=== PATIENT | female | born 1970 | race Caucasian/White ===

== ENCOUNTER 2018-12-19 00:33 | Outpatient (CLI) | payer BC, SELFPAY ==
--- NOTE | 2018-12-19 07:50 | DI.MAMMO_ITS ---
SYMPTOM/DIAGNOSIS: SCREENING Z12.31 [facility] Z00.00 BILATERAL SCREENING MAMMOGRAM: Mammograms were interpreted according to the usual protocol including computer analysis with CAD system, tomosynthesis and C view imaging. Comparison is made with exams from 2009 through 2016. The breasts are composed of heterogeneously dense fibroglandular tissue, breast density category C. No suspicious masses or suspicious microcalcifications are seen. There has been no significant change. IMPRESSION: Category 1, negative mammogram. Yearly screening mammography is recommended. Breast density Category C. SA ASSESSMENT OF FINDINGS: Negative. Category 1. Patient will receive a letter notifying them of these results. Bi-RADS category C. The breasts are heterogeneously dense, which may obscure small masses.
[2018-12-19 08:55] LABS: Hemoglobin A1C 5.8 % (4.5-6.2)
[2018-12-19 09:20] LABS: Anion Gap 9.2 mmol/L (3-11); BUN 13 mg/dL (7-18); CO2 25.8 mmol/L (21.0-32.0); CREATININE 0.74 mg/dL (0.55-1.02); Calculated LDL 158 mg/dL; Chloride 106 mmol/L (98-107); Cholesterol 236 mg/dL (50-200); Glucose 110 mg/dL (70-100); HDL Cholesterol 51 mg/dL (40-60); Potassium 4.1 mmol/L (3.5-5.1); Sodium 141 mmol/L (136-145); TSH (W/Ref FT4) 1.42 uIU/mL (0.36-3.74); Triglyceride 139 mg/dL (30-150)
== END 2018-12-19 00:53 ==
PROVIDERS: PCP Family Medicine; Visit Provider Family Medicine
DX: R73.03 Prediabetes (principal); E78.5 Hyperlipidemia, unspecified; E66.9 Obesity, unspecified; Z00.00 Encounter for general adult medical examination without abnormal findings; Z12.31 Encounter for screening mammogram for malignant neoplasm of breast
CPT/HCPCS: 36415; 77063; 77067; 80048; 80061; 83036; 84443

== ENCOUNTER 2019-12-28 16:40 | Outpatient (REF) | payer BC, SELFPAY ==
[2019-12-28 20:46] LABS: ALT 33 U/L (14-59); AST 16 U/L (15-37); Albumin 3.8 g/dL (3.4-5.0); Alkaline Phosphatase 102 U/L (46-116); Bilirubin, Total 0.4 mg/dL (0.2-1.0); Total Protein 6.8 g/dL (6.4-8.2)
[2019-12-28 20:53] LABS: Hemoglobin A1C 5.7 % (<5.7)
== END 2019-12-28 17:00 ==
LOC: NCHCN 16:40
PROVIDERS: PCP Family Medicine; Visit Provider Family Medicine
DX: R10.11 Right upper quadrant pain (principal); R73.03 Prediabetes
CPT/HCPCS: 80076; 83036

== ENCOUNTER 2020-01-01 00:41 | Outpatient (CLI) | payer BC, SELFPAY ==
--- NOTE | 2020-01-01 | DI.US_ITS ---
EXAM: US ABDOMEN INDICATION: RUQ PAIN,S/P GALLBLADDER REMOVAL,R10.11 COMPARISON: US PELVIS TRANSVAG from 07/07/2015 TECHNIQUE: Ultrasound abdomen performed using standard protocol FINDINGS: Abdominal ultrasound was performed according to the usual protocol. The liver is normal in size and shape. No focal hepatic lesion seen. There is been a prior cholecystectomy. No biliary dilatation seen. Pancreas appears intact as visualized. Spleen is unremarkable in appearance with no focal lesion. Kidneys are normal in size and shape. No renal mass, hydronephrosis, or nephrolithiasis. Abdominal aorta and IVC are of normal diameter. IMPRESSION: Negative abdominal ultrasound post cholecystectomy.
== END 2020-01-01 01:01 ==
PROVIDERS: PCP Family Medicine; Visit Provider Family Medicine
DX: R10.11 Right upper quadrant pain (principal)
CPT/HCPCS: 76700

== ENCOUNTER 2020-02-04 01:17 | Outpatient (CLI) | payer BC, SELFPAY ==
--- NOTE | 2020-02-04 | DI.MAMMO_ITS ---
EXAM: MAMMO SCREENING CLINICAL HISTORY: SCREENING, [facility], [facility],Z00.00 TECHNIQUE: Mammograms were interpreted according to the usual protocol including computer analysis w ESTmob CAD system, tomosynthesis and C-view imaging. COMPARISON: 2015 and 2018 FINDINGS: The breasts are composed of scattered fibroglandular densities, Breast Density category B. No suspicious masses or suspicious microcalcifications are seen. No skin thickening or abnormal axillary lymph nodes are seen. There has been no significant change from prior exams. IMPRESSION: BI-RADS Category 1, Negative mammogram Yearly screening mammography is recommended. Breast Density - Category B, scattered fibroglandular densities. A negative radiographic report should not delay biopsy if a dominant or clinically suspicious mass is present. Up to ten percent of cancers are not identified on mammography. A negative report may reinforce clinical impression. Adenosis and dense breasts may obscure an underlying neoplasm. False positive reports average 6 to 10%. Patient will receive a letter notifying them of these results.
== END 2020-02-04 01:37 ==
PROVIDERS: PCP Family Medicine; Visit Provider Family Medicine
DX: Z12.31 Encounter for screening mammogram for malignant neoplasm of breast (principal)
CPT/HCPCS: 77063; 77067

== ENCOUNTER 2021-05-08 21:46 | Outpatient (REF) | payer BC, SELFPAY ==
[2021-05-11 11:05] LABS: HSV 1 DNA Result Negative (Negative); HSV 2 DNA Result Negative (Negative); Varicella Zoster DNA Result Negative (Negative)
== END 2021-05-08 21:47 | disposition home or self-care (01) ==
LOC: LBN 21:46
PROVIDERS: PCP Family Medicine; Visit Provider Family Medicine
DX: R21 Rash and other nonspecific skin eruption (principal)
CPT/HCPCS: 87529; 87798

== ENCOUNTER 2021-09-18 17:04 | Outpatient (REF) | payer BC, SELFPAY ==
--- NOTE | 2021-09-18 13:30 | PAPFT_PTH ---
PATIENT: Ruby Delcid LOC: [facility]#:[id number] AGE/SX: 51/F ROOM: RE09/18/[address]: Razia Bernard : 1970 BED: DIS: 09/18/2021 SPEC #: [id number] RECD: 09/18/21 18:17 STATUS: CHRISTAL REQ #: [id number] ANGELO: 09/18/21 13:[address]: Razia Bernard DEPT: [facility] Cytology RECD BY: Elizabeth Lundy Tissues: 1 - CX/ENDOCX FOR PAP SMEARS Procedures: PAP THIN PREP/UVM Screening HPV DNA PROBE Comments: [id number]
== END 2021-09-18 17:05 | disposition home or self-care (01) ==
LOC: NCHCN 17:04
PROVIDERS: PCP Family Medicine; Visit Provider Family Medicine
DX: Z12.4 Encounter for screening for malignant neoplasm of cervix (principal); Z11.51 Encounter for screening for human papillomavirus (HPV); Z01.419 Encounter for gynecological examination (general) (routine) without abnormal findings
CPT/HCPCS: 88142; 87624

== ENCOUNTER 2021-09-29 02:42 | Outpatient (CLI) | payer BC, SELFPAY ==
--- NOTE | 2021-12-11 08:54 | CER_ITS ---
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 Recording was from September 29 through October 13, 2021 Predominant rhythm was sinus with an average heart rate of 89. Minimum was 67, maximum 152 There were very rare atrial and ventricular ectopic beats There was one 8 beat run of nonsustained ventricular tachycardia There was 1 self-limited atrial runs, 8 beats in duration Patient symptoms were reported. These generally corresponded to sinus tachycardia. The episode of nonsustained ventricular tachycardia may have been associated with symptoms
== END 2021-09-29 02:43 | disposition home or self-care (01) ==
LOC: RT 02:42
PROVIDERS: PCP Family Medicine; Visit Provider Family Medicine
DX: R00.2 Palpitations (principal)
CPT/HCPCS: 93246

== ENCOUNTER → 2021-11-13 00:07 | Outpatient (CLI) | payer BC, SELFPAY ==
--- NOTE | 2021-11-13 | DI.DEXA_ITS ---
Exam(s) XR DEXA BONE DENSITY W/WO LINCOLN EXAM: XR DEXA BONE DENSITY W/WO LINCOLN CLINICAL HISTORY: RT FOOT FX [id number] TECHNIQUE: COMPARISON: No exams were available for comparison FINDINGS: Lateral Spine Image: Unremarkable. No compression deformities identified. Left hip: Total T-Score: 0.2 Total Z-Score: 0.7 T- and Z-scores: Within normal limits. Lumbar Spine: Total T-Score: -1.4 Total Z-Score: -0.5 T- and Z-scores: Findings are consistent with osteopenia. IMPRESSION: No evidence of osteoporosis.
--- OUTSIDE RECORDS SUMMARY | 2021-11-13 00:11 | XMS_ITS | Encounter Summary ---
:1970 Author Organization [facility] Address [address] [place] [address] Care Team Providers Name Role Phone Razia Bernard MD Primary Care Provider Encounter Details Date Type Department Care Team Description 09/21/2021 Lab Requisition [facility] Razia Bernard MD Encounter for Pathology & [address] gynecological Laboratory [address] examination (general) - [place], [place] (routine) without [address] [facility] [id number] abnormal findings [place], [place] [id number] Social History Tobacco Use Types Packs/Day Years Used Date Former Smoker Quit: 05/28/19 17 Smokeless Tobacco: Never Used Sex Assigned at Date Recorded Not on file documented as of this encounter Plan of Treatment Not on filedocumented as of this encounter Procedures Procedure Name Priority Date/Time Associated Diagnosis Comme nts PAP TEST Today 09/18/2021 1:30 Encounter for Results for this EDT gynecological procedure are in examination (general) the re sults (routine) without section. abnormal findings HUMAN PAPILLOMAVIRUS Today 09/18/2021 1:30 Encounter for Res ults for this (HPV) DETECTION-HIGH EDT gynecological proced ure are in RISK TYPES examination (general) the re sults (routine) without section. abnormal findings documented in this encounter Results HUMAN PAPILLOMAVIRUS (HPV) DETECTION-HIGH RISK TYPES (09/18/2021 1:30 EDT) Human Papillomavirus NegativeComment: No Negative [facility] (HPV) Detection-High E6 or E7 mRNA is CENTER LABORATOR Y Types detected from HPV SERVICES types 16,18,31,33,35,39,45 ,51,52,56,58,59,66, and 68 by dump truck driver mediated amplification. Specimen Pap Test - Cervix and/or Endocervix Performing Organization Address City/[facility]/ZIP Code Phon e Number [facility] [address] [place] [address] SERVICES PAP TEST (09/18/2021 1:30 EDT) Specimens A. Cervix and/or [facility] Endocervix , ThinPrep CENTER Imaging System with LABORATORY Manual Evaluation SERVICES Specimen Adequacy Satisfactory for [facility] Evaluation - CENTER transformation zone LABORATORY component present SERVICES General Negative for [facility] intraepithelial [place] lesion or malignancy LABORATORY SERVICES Attestation . [facility] C[facility] signed by Brad benedict, LABORATORY MARLEY Serna( CP) SERVICES on 09/30/2021 at 1456 Clinical History SEE BELOW [facility] SERVICES HPV The result for the Human Pap illomavirus (HPV) Detection-High Risk Types is Negative. No E6 or E7 mRNA is detected from HPV types 16,18,31,33,35,39,45,51,52,56,58,59,66, and 68 by dump truck driver mediated [facility] amplification.Testing was pe rformed on specimen [id number] and was resulted on 09/30/2021 1431 EDT by PADMA, LAB INSTRUMENT RESULTS IN [facility] SERVICES Performing Lab [facility] SERVICES Scanned Images [facility] SERVICES Specimen Pap Test - Cervix and/or Endocervix Performing Organization Address City/State/ZIP Code Phon e Number [facility] [address] [place] [address] SERVICES documented in this encounter Visit Diagnoses Diagnosis Encounter for gynecological examination (general) (routine) without abnormal findings documented in this encounter Care Teams 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
--- OUTSIDE RECORDS SUMMARY | 2021-11-13 00:11 | XMS_ITS | Encounter Summary ---
:1970 Author Organization [facility] Address [address] [place] [address] Care Team Providers Name Role Phone Unavailable Primary Care Provider Unavailable Encounter Details Date Type Department Care Team Description 10/14/2005 Before [facility] - [place] rAreola Jr., Converted Visit Jacqueline branham MD (Maple) [address] [facility] [address] [place] [address] [address] [phone] [place] [address] (Wo rk) Social History Tobacco Use Types Packs/Day Years Used Date Never Assessed Sex Assigned at Date Recorded Not on file documented as of this encounter Progress Notes Cortez Arreola MD - 03/29/2009 1904 EST DIVISION OF PLASTIC RECONSTRUCTIVE SURGERY PROGRESS/FOLLOWUP NOTE - 10/14/2005 Ruby returns in follow up from a breast reduction surgery on September 03. She is doing well. examination her breasts are symmetric. The incisions are healing well. Her nipple areolar complexes are perfused. The right is normally sensate. The left has some altered sensation but the patient relates is improving with time. Impression: Doing well status-post bilateral breast reduction surgery. Photographs were taken. She will follow up on an as needed basis. Signed by Cortez Arreola MD 10/25/2005 16:52 Lucie Arreola, Joe Arreola MD Cortez Arreola MD - Cortez Arreola MD P - chr Job ID: [id number] Document ID: [id number] cc: documented in this encounter Plan of Treatment Not on filedocumented as of this encounter Visit Diagnoses Not on filedocumented in this encounter
--- OUTSIDE RECORDS SUMMARY | 2021-11-13 00:11 | XMS_ITS | Encounter Summary ---
:1970 Author Organization [facility] Address [address] [place] [address] Care Team Providers Name Role Phone Razia Bernard MD Primary Care Provider Reason for Visit Reason Comments New Patient Visit Skin lesions spots of concer n on upper right back, right cheek Encounter Details Date Type Department Care Team Description 05/28/2019 Office Visit [facility] Darwin Raza Seborrhei c keratoses (Primary Dx); Dermatology - [facility] MD Ilya Inflamed seborrheic keratosis of right c heek; [address] Melanocytic nevus of trunk; [address] [place] [address] Neoplasm of uncertain behavior of skin [place], [place] [id number] [place] [address] [address], [address] [place] [phone] (Wo rk) Social History Tobacco Use Types Packs/Day Years Used Date Former Smoker Quit: 05/28/19 17 Smokeless Tobacco: Never Used Sex Assigned at Date Recorded Not on file documented as of this encounter Patient Instructions Patient InstructionsPiDarwin saleem MD - 05/28/2019 15:20 EST WOUND CARE INSTRUCTIONS FOR SKIN BIOPSY The DRESSING/BANDAID should remain in place for 24 hours. You may shower or bathe after 24 hours; remove the bandage and replace it after the shower. DISCOMFORT: Acetaminophen or Ibuprofen (or similar NSAIDs), taken as directed by the tube operator oryour physician, usually relieves any pain you may have. BLEEDING: You may notice some blood on the edges of the dressing the first day and this is NORMAL. If the bleeding soaks through the dressing, remove the dressing, and apply firm, steady pressure with a moist clean wash cloth for 15 minutes (no peeking!). If the bleeding stops, redress the wound. If not, please call our office at . ACTIVITY: You may resume normal activity in 1 day unless instructed otherwise. WOUND CARE: ?? Wash hands with soap and water before changing the dressing. ?? Change the dressing daily and when it becomes wet. Gently clean the wound daily with mild soap and water. You may gently loosen any crusts with a cotton swab. The wound may be slightly tender and may bleed a small amount. A small amount of discharge isnormal. Apply a thin layer of sterile petroleum jelly (Vaseline) over the wound followed by a Band-Aid or non-stick dressing. It is important to keep the wound clean and moist with Vaseline to promote wound healing (letting the wound scab or dry-out typically impedes wound healing). CONTACT THE OFFICE IF YOU EXPERIENCE: ?? spreading redness ?? warmth to touch ?? increasing pain ?? drainage with a foul odor ?? rapid swelling of the wound ?? fever or chills You should receive a phone call or a letter with biopsy results within 10-14 days. If you have not heard anything after 2 weeks, please contact our office. If you have questions or concerns, please call our office at or . ---- WOUND CARE INSTRUCTIONS FOR CRYOSURGERY (FREEZING THERAPY) Treatment with liquid nitrogen (cryosurgery) causes localized swelling, throbbing, and blister formation. Do not pop an intact blister. If the blisters open, apply Vaseline/petroleum jelly daily until the area heals. We do not recommend the use of triple antibiotic ointment or other ointments as they can cause allergic reactions and do not significantly reduce the incidence of infection, which is very rare to startwith. . CONTACT THE OFFICE IF YOU EXPERIENCE: ?? increasing redness ?? warmth to touch ?? increasing pain ?? drainage with a foul odor ?? rapid swelling of the wound ?? fever or chills It was a pleasure taking care of you today. Please call our office or if you have any concerns or questions. Follow these tips to protect your skin from the sun's damaging ultraviolet rays and reduce your riskof skin cancer: Seek shade when appropriate, remembering that the sun???s rays are strongest between 10 a.m. and 2 p.m. If your shadow is shorter than you are, seek shade. Wear protective clothing, such as a lightweight long-sleeved shirt, pants, a wide-brimmed hat and sunglasses, when possible. Generously apply a broad-spectrum, water-resistant sunscreen with an SPF of 30 or higher. Broad-spectrum sunscreen provides protection from both UVA and UVB rays. ??? Use sunscreen whenever you are going to be outside, even on cloudy days. ??? Apply enough sunscreen to cover all exposed skin. Most adults need about 1 ounce ??? or enough to fill a shot glass ??? to fully cover their body. ??? Don???t forget to apply to the tops of your feet, your neck, your ears and the top of your head. ??? If you are concerned about potential adverse effects of sunscreens, consider mineral-based agents that contain zinc or titanium oxide (these are generally a bit harder to fully rub in, but are typically quite effective and well tolerated) When outdoors, reapply sunscreen every two hours, or after swimming or sweating. Use extra caution near water, snow and sand, as they reflect the damaging rays of the sun, which can increase your chance of sunburn. Avoid tanning beds. Ultraviolet light from tanning beds can cause skin cancer and premature skin aging. Consider using a self-tanning product if you want to look hinojosa, but continue to take good sun protective measures (self tanners do not provide adequate protection from the sun's rays) -------- Perform regular skin self-exams to detect skin cancer early ??? Seek evaluation for any new or suspicious spots on your skin, or anything changing, itching or bleeding. ??? Remember the ABCDEs of melanoma: A is for Asymmetry One half of the spot is unlike the other half. B is for Border The spot has an irregular, scalloped, or poorly defined border. C is for Color The spot has varying colors from one area to the next, such as shades of hinojosa, brown or black, or areas of white, red, or blue. D is for Diameter Melanomas are usually greater than 6 millimeters (about the size of a pencil eraser) but they can besmaller. E is for Evolving The spot looks different from the rest of your moles, or is changing in size, shape, or color -------- For more information and helpful tips for many skin conditions: Visit https://www.aad.org/public The wound is cleansed, debrided of foreign material as much as possible, and dressed. The patient isalerted to watch for any signs of infection (redness, pus, pain, increased swelling or fever) and call if such occurs. Home wound care instructions are provided. Tetanus vaccination status reviewed: documented in this encounter Progress Notes Darwin Raza MD - 05/28/2019 1520 EST New Visit Chief Complaint Patient presents with ??? New Patient Visit Skin lesions spots of concern on upper right back, right cheek Subjective Ruby Delcdi is a 48 y.o. female who presents for evaluation. She is here today for evaluation of two spots in particular: 1) Growth on the right cheek. Present for a month or so. Raised. Itchy and irritated. No prior treatment. 2) Growth on the right upper back. Initially developed a few months ago, was irritated and tender. She applied tea tree oil and it improved. Recently she notes that something seems to have grown back but is no longer symptomatic. Denies a personal history of skin cancer. She also would like a full skin check today. ROS: Constitutional - Denies fevers, chills, night sweats and unintentional weight loss Hematologic - denies swollen glands, easy bruising and bleeding Integumentary - see HPI PMH PSH No past medical history on file. No past surgical history on file. Social History Family History Social History Tobacco Use ??? Smoking status: Former Smoker Last attempt to quit: 05/28/2016 Years since quittin.0 ??? Smokeless tobacco: Never Used Substance Use Topics ??? Alcohol use: Not on file No family history on file. Medications Current Outpatient Medications: Black Cohosh 540 mg capsule fexofenadine/pseudoephedrine (NOEL-D 24 HOUR ORAL) No current facility-administered medications for this visit. Allergies Allergies Allergen Reactions ??? Adhesive Rash ??? Penicillins Swelling and Rash ??? Sulfa (Sulfonamide Antibiotics) Swelling and Rash Objective Cutaneous Exam A full body examination including the hair, scalp, face, eyelids, lips, neck, chest, back, abdomen, all four extremities, hands, feet, digits and nails was performed. Significant findings include: Right cheek with stuck-on appearing lightly pigmented, inflamed papule -Scattered stuck-on appearing hinojosa and light brown papules -Right upper back with soft hinojosa papule -Right lower back with darkly pigmented thin papule Assessment and Plan 1. Seborrheic keratoses -Education and anticipatory guidance 2. Inflamed seborrheic keratosis of right cheek Right cheek -Cryotherapy today due to irritation Cryotherapy procedure note Risks of the procedure were discussed, including pain, blistering, possible infection, resultant hypo-or hyperpigmentation and possibility of incomplete resolution. Alternative therapies considered andreviewed as appropriate. Verbal consent was obtained prior to the procedure. The patient was educated on wound care, and instructed to return for evaluation if any lesion fails to resolve with treatment. Darwin Raza MD 05/28/19 15:49 3. Melanocytic nevus of trunk Right upper back lesion of patient concern is c/w a benign nevus -Education and anticipatory guidance -Return for growth or changes 4. Neoplasm of uncertain behavior of skin Right lower back Darkly pigmented and stands out from the rest of her nevi R/o dysplastic nevus SHAVE BIOPSY The indication, risks (including infection, bleeding, pain, and scarring), benefits and alternativesto this procedure were discussed in detail with the patient and all questions were answered. Informed consent was obtained prior to the procedure. PROCEDURE NOTE Specimen A Procedure: Tangential Shave Indication: Diagnostic Biopsy Site: Right lower back Anesthesia: 1% lidocaine with epinephrine 1:100,000 local infiltration Prep: Alcohol The lesion was prepped as above and locally anesthetized. The specimen was removed by tangential shave using a Dermablade??. Hemostasis was achieved with pressure and aluminum chloride. A sterile dressing was applied over Petrolatum ointment. The patient was educated on wound care instructions. The specimen was confirmed in the specimen bottle prior to submission to pathology for histological evaluation. Follow-up recommended: As needed pending biopsy results See patient instructions aDrwin Raza MD 05/28/19 15:47 Nuvia Powers MA - 05/28/2019 1520 EST Review of Systems Constitutional: Negative for fatigue, fever and unexpected weight change. HENT: Negative for mouth sores. Eyes: Negative for pain. Respiratory: Negative for cough and shortness of breath. Cardiovascular: Negative for chest pain and palpitations. Gastrointestinal: Negative for abdominal pain, blood in stool, constipation, diarrhea, nausea and vomiting. Genitourinary: Negative for dysuria, frequency and hematuria. Musculoskeletal: Negative for myalgias, joint swelling, arthralgias and muscle stiffness in the morning. Skin: Negative for rash. Neurological: Negative for numbness and headaches. Endo/Heme/Allergies: Does not bruise/bleed easily. Psychiatric/Behavioral: Negative for sleep disturbance. The patient is not nervous/anxious. Patient Education Topic: Wound Care Method: Handout and Verbal Taught to: Patient Barriers: None Outcomes: independent and verbalized understanding Signature:NUVIA POWERS MA 05/28/2019 15:52 NUVIA POWERS MA 05/28/2019 15:25 documented in this encounter Miscellaneous Notes Result QuickNote - Darwin Raza MD - 05/28/2019 1520 EST Spoke with patient and reviewed results. Recommended roughly annual skin checks for now. documented in this encounter Plan of Treatment Not on filedocumented as of this encounter Procedures Procedure Name Priority Date/Time Associated Diagnosis Comme nts SURGICAL PATHOLOGY Routine 05/28/2019 15:41 Neoplasm of Resul ts for this EST uncertain behavior procedure are in of skin the results section. documented in this encounter Results SURGICAL PATHOLOGY (05/28/2019 15:41 EST) Final Diagnosis A. SKIN OF BACK, RIGHT LOWER, SHAVE BIOPSY: [facility] Electronically - Architecturally disordered compound nevus with mild cytologic atypia, encompassed within the examined sections. CENTER signed by Toño LABORATORY Marlene Miles MD on SERVICES 05/29/2019 at 15 23 Clinical History darkly pigmented [facility] melanocytic lesion, [facility] r/o dysplasia LABORATORY SERVICES Attestation By the signature [facility], the attending [facility]ENTER signed by Toño, physician certifies LABORATORY Marlene Miles MD on that they have 1) SERVICES 05/29/2019 at 1523 personally conducted a gross and/or microscopic examination of the described specimen(s), and/or personally interpreted the results of laboratory testing of the described specimen(s), and 2) personally rendered or confirmed the above diagnosis. Gross Description A. Received in formalin labe lled with proper patient identification (initials C, T) and right lower back is a shave biopsy of white skin (0.8 x 0.6 x 0.1 cm). There is a central brown-black macule eliot [facility] t measures 0.5 x 0.3 cm. The margin is inked blue. Bisected and submitted in A1. [facility] MIHRAB ALI 05/29/2019 07:46 SERVICES Scanned Images [facility] SERVICES Specimen Tissue - Skin (tissue) specimen (specime n) Performing Organization Address City/State/ZIP Code Phon e Number [facility] [address] [place] [address] SERVICES documented in this encounter Visit Diagnoses Diagnosis Seborrheic keratoses - Primary Inflamed seborrheic keratosis of right c heek Inflamed seborrheic keratosis Melanocytic nevus of trunk Benign neoplasm of skin of trunk, except scrotum Neoplasm of uncertain behavior of skin documented in this encounter Care Teams Burrito Maker Relationship Specialty Start Date End Date Razia Bernard MD PCP - General 02/22/[address] [place] [phone] documented as of this encounter
--- OUTSIDE RECORDS SUMMARY | 2021-11-13 00:11 | XMS_ITS | Encounter Summary ---
:1970 Author Organization [facility] Address [address] [place] [address] Care Team Providers Name Role Phone Unavailable Primary Care Provider Unavailable Encounter Details Date Type Department Care Team Description 02/28/2006 [facility] [address] [facility] [address] [place] [address] [facility] [phone] Office Building, [address] [place] [address] (Wo rk) Social History Tobacco Use Types Packs/Day Years Used Date Never Assessed Sex Assigned at Date Recorded Not on file documented as of this encounter Discharge Disposition Disposition Code Departure Means Destination Home or Self Care documented in this encounter Plan of Treatment Not on filedocumented as of this encounter Procedures Procedure Name Priority Date/Time Associated Diagnosis Comme nts CYTOPATHOLOGY Routine 11/08/2008 0:00 EDT Results for this procedure are i n the results section . documented in this encounter Results CYTOPATHOLOGY (11/08/2008 0:00 EDT) Pathology Report: CYTOPATHOLOGY REPORT ? [facility] ? LAB Reports generated via electr onic interface contain original data; ? however they are lacking the format of the original report. ? Caution should be taken when reading/interpreting unformatted reports. ? Name: ? RUBY LAINEZ ? Accession #: ? [id number] ? : ? 1970 (Age: 38) ??F ?Collect Date: ? 11/08/2008 ? Location: ? [facility] ? Receive Date: ? 11/11/2008 ? Provider: ?DK OVALLE MD ? Copy to: ? Specimen/Source: ? Pap Test, Cervix/Endocervix, ThinPrep Imaging System ? with manual evaluation ? Last Menstrual Period: ? 7/10/09 ? Treatment History: ? Miscellaneous treatment: End omterial ablation 1/18/08 ? Other: ? HPVA - HPV testing requested if ASC-US on the current ThinPrep Pap test. ? SPECIMEN ADEQUACY ? Unsatisfactory for Ev aluation, ? - insufficient numbers of sq uamous epithelial cells (less than 10% of expected ?? cellularity) ? GENERAL CATEGORIZATION ? Specimen processed an d examined, but unsatisfactory for evaluation of ? epithelial abnormality. ? Recommend repeat Pap test or further follow up, as clinically indicated. ? Document reviewed and electr onically signed by: ? Daphne Christiansonlogg, CT(ASCP) ? Report Date: ??07/29/ 2009 08:29 ? End of Report ? Specimen Performing Organization Address City/State/ZIP Code Phon e Number [facility] [address] [place] [address] SERVICES [facility] [address] [place] [address] documented in this encounter Visit Diagnoses Not on filedocumented in this encounter
--- OUTSIDE RECORDS SUMMARY | 2021-11-13 00:11 | XMS_ITS | Encounter Summary ---
:1970 Author Organization [facility] Address [address] [place] [address] Care Team Providers Name Role Phone Razia Bernard MD Primary Care Provider Encounter Details Date Type Department Care Team Description 05/09/2021 Lab Requisition [facility] Outr Resulting Lab, Pathology & Laboratory Provider [facility] [address] [place], [place] [id number] Social History Tobacco Use Types Packs/Day Years Used Date Former Smoker Quit: 05/28/19 17 Smokeless Tobacco: Never Used Sex Assigned at Date Recorded Not on file documented as of this encounter Plan of Treatment Not on filedocumented as of this encounter Procedures Procedure Name Priority Date/Time Associated Diagnosis Comme nts VARICELLA ZOSTER Routine 05/08/2021 17:40 Results for this VIRUS MOLECULAR EST procedure ar e in DETECTION, PCR the results section. HERPES SIMPLEX Routine 05/08/2021 17:40 Results f or this VIRUS MOLECULAR EST procedure ar e in DETECTION, PCR the results section. documented in this encounter Results VARICELLA ZOSTER VIRUS MOLECULAR DETECTION, PCR (05/08/2021 17:40 EST) VARICELLA ZOSTER NegativeComment: This Negative [facility] VIRUS MOLECULAR test was developed and [facility] DETECTION, PCR its performance SERVICES characteristics determined by [facility]. It has not been cleared or approved by the US Food and Drug Administration. FDA does not require this test to go through premarket FDA review. This test is used for clinical purposes. It should not be regarded as investigational or research. This laboratory is certified under the Clinical Laboratory Improvement Amendments (CLIA) as qualified to perform high complexity clinical laboratory testing. Specimen Swab - Skin (tissue) specimen (specimen) Performing Organization Address City/[facility] Code Phon e Number [facility] [address] [place] [address] SERVICES HERPES SIMPLEX VIRUS MOLECULAR DETECTION, PCR (05/08/2021 17:40 EST) Pathologist Sig nature Herpes Simplex Virus Negative Negative [facility] Molecular Detection 1, LABORATORY SERVICE S PCR Herpes Simplex Virus Negative Negative [facility] Molecular Detection 2, LABORATORY SERVICE S PCR Specimen Swab - Skin (tissue) specimen (specimen) Performing Organization Address City/[facility] Phon e Number [facility] [address] [place] [address] SERVICES documented in this encounter Visit Diagnoses Not on filedocumented in this encounter Care Teams Ent Nurse Relationship Specialty Start Date End Date Razia Bernard MD PCP - General 02/22/[address] [place] [phone] documented as of this encounter
--- OUTSIDE RECORDS SUMMARY | 2021-11-13 00:11 | XMS_ITS | Encounter Summary ---
:1970 Author Organization [facility] Address [address] [place] [address] Care Team Providers Name Role Phone Razia Bernard MD Primary Care Provider Encounter Details Date Type Department Care Team Description 02/28/2019 Results Only [facility] Ashkan Butcher istina Lab - [facility] Liliana, SPLITTER HEAD [address] [facility] [address], [address] [place], [place] [id number] [place] [address] (Wo rk) Social History Tobacco Use Types Packs/Day Years Used Date Never Assessed Sex Assigned at Date Recorded Not on file documented as of this encounter Plan of Treatment Not on filedocumented as of this encounter Procedures Procedure Name Priority Date/Time Associated Diagnosis Comme nts HERPES SIMPLEX Routine 02/28/2019 12:15 Results f or this VIRUS (HSV) BY EST procedure are in RAPID PCR the results section. documented in this encounter Results HERPES SIMPLEX VIRUS (HSV) BY RAPID PCR (02/28/2019 12:15 EST) HSV 1 DNA RESULT Negative Negative [facility] HSV 2 DNA RESULT Negative Negative [facility] Comment: [facility] Test performed or referred by The [address] [address] SPECIMEN DESCRIPTION Left Forehead [facility] LAB Specimen Performing Organization Address City/State/ZIP Code Phon e Number [facility] [address] [place], [place] [id number] [place] [address] LAB documented in this encounter Visit Diagnoses Not on filedocumented in this encounter Care Teams Internal Grinding Machine Operator Relationship Specialty Start Date End Date Razia Bernard MD PCP - General 02/22/[address] [phone] documented as of this encounter
--- OUTSIDE RECORDS SUMMARY | 2021-11-13 00:11 | XMS_ITS | Encounter Summary ---
:1970 Author Organization [facility] Address [address] [place] [address] Care Team Providers Name Role Phone Unavailable Primary Care Provider Unavailable Encounter Details Date Type Department Care Team Description 11/09/2013 Results Only [facility] Ana Hernandes, OFFICE EXECUTIVE Laboratory Services - [address] [place] [address] [address] [place] [phone] [place], [place] [id number] [phone] Social History Tobacco Use Types Packs/Day Years Used Date Never Assessed Sex Assigned at Date Recorded Not on file documented as of this encounter Plan of Treatment Not on filedocumented as of this encounter Procedures Procedure Name Priority Date/Time Associated Diagnosis Comme nts PAP TEST- RESULT Routine 11/09/2013 0:00 EDT Resu lts for this ONLY procedure are i n the results section. documented in this encounter Results PAP TEST- RESULT ONLY (11/09/2013 0:00 EDT) Pathology Report: CYTOPATHOLOGY REPORT [facility] Reports generated via electronic interface contain maite ginal data; however they are lacking the format of the original re port. Caution should be taken when reading/interpreting unfo rmatted reports. Name: ? RUBY LAINEZ ? Accession #: ? [id number] ? : ? 1970 (Age: 43) ??F ?Collect Da te: ? 11/09/2013 ? Location: ? [facility] ? Receive Date: ? 014 ? Provider: DEMETRIS HERNANDES OFFICE EXECUTIVE Copy to: ? Final Report SPECIMEN ADEQUACY ? Satisfactory for Evaluation - transformation zone component present - scant squamous epithelial component secondary to exc essive inflammation GENERAL CATEGORIZATION ? Negative for Intraepithelial Lesion or Malignan cy INTERPRETATION ? Reactive cellular martell nges associated with inflammation present (includes repair). Last Menstrual Period: 10/22/13 Specimen/Source: ??Pap Test, Cervix/Endocervix, ThinPr ep Imaging System with manual evaluation Document reviewed and electronically signed by: ? JOSE ARMANDO MARTINEZ MD ? Report ??Date: 11/19/2013 12:01 HPV with Pap Test ? Date Ordered: ? 11/19/2013 ? Status: ?? Signed Out ?Date Complete: ? 11/21/2013 ? By: ??S ystem Interface ? Date Reported: ? 11/21/2013 ? Interpretation RESULT: Negative for HPV. No E6 or E7 mRNA is detected from HPV types 16,18,31,3 3,35, 39,45,51,52,56,58,59,66, and 68 by pharmacoepidemiologist media steff amplification. Comments Document reviewed and electronically signed by: ? System Interface ? Report date: 11/21/2013 By the signature above, the attending physician certif ies that he/she has personally conducted a gross and/or microscopic examin ation of the described specimens and rendered or confirmed the above diagnosi s. End of Report Specimen Performing Organization Address City/State/ZIP Code Phon e Number [facility] [address] [place] [phone] SERVICES [facility] [address] [place] [address] documented in this encounter Visit Diagnoses Not on filedocumented in this encounter
--- OUTSIDE RECORDS SUMMARY | 2021-11-13 00:11 | XMS_ITS | Encounter Summary ---
:1970 Author Organization [facility] Address [address] [place] [address] Care Team Providers Name Role Phone Razia Ovalle MD Primary Care Provider Encounter Details Date Type Department Care Team Description 01/02/2018 Results Only [facility] Nas Gonzalez, [address] [place] [address] [address] [place] [address] (Wo rk) Social History Tobacco Use Types Packs/Day Years Used Date Never Assessed Sex Assigned at Date Recorded Not on file documented as of this encounter Plan of Treatment Not on filedocumented as of this encounter Procedures Procedure Name Priority Date/Time Associated Comments Diagnosis BUN Routine 01/02/2018 18:48 Results for this EDT procedure are i n the results section. HEMOGLOBIN A1C Routine 01/02/2018 18:48 Results f or this EDT procedure are i n the results section. CREATININE Routine 01/02/2018 18:48 Results for this EDT procedure are i n the results section. ELECTROLYTES Routine 01/02/2018 18:48 Results for this EDT procedure are i n the results section. PAP TEST- RESULT ONLY Routine 01/02/2018 0:00 Res ults for this EDT procedure are i n the results section. documented in this encounter Results ELECTROLYTES (01/02/2018 18:48 EDT) Pathologist Sig nature Sodium 139 136 - 145 mEq/L [facility] SERVICES Potassium 3.7 3.5 - 5.0 mEq/L [facility] SERVICES Chloride 104 96 - 110 mEq/L [facility] ORY SERVICES CO2 27 22 - 32 mEq/L [facility] RY SERVICES Specimen Blood Performing Organization Address [facility]/ZIP Code Phon e Number [facility] [address] [place] [address] SERVICES HEMOGLOBIN A1C (01/02/2018 18:48 EDT) Hemoglobin A1C 5.7 % [facility] Comment: LABORATORY SERVICES Reference Range: <5.7% Normal 5.7-6.4% Prediabetes =>6.5% Diagnostic for diabetes (if confirmed) Goals for glycemic control in diabetes ADA 2017 For non adults with diabetes: ?? Target <7.0% For children and adolescents with type 1 diabetes: ?? Target <7.5% More or less stringent targets may be appropriate for individual patients. Est Avg Glucose 117 mg/dl [facility] Comment: LABORATORY SERVICES eAG represents the A1c result expressed as average glucose in mg/dl. Specimen Blood Performing Organization Address City/[facility]/ZIP Code Phon e Number [facility] [address] [place] [phone] SERVICES CREATININE (01/02/2018 18:48 EDT) Creatinine 0.65 0.52 - 1.04 [facility] mg/dl LABORATORY SERVICES GFR, Calculated 106 >60 [facility] Comment: ml/min/1.73m2 LABORATORY eGFR calculated using CKD-EPI equation for SERVICES non Americans. Multiply eGFR by 1.16 for Americans. Specimen Blood Performing Organization Address City/State/ZIP Code Phon e Number [facility] [address] [place] [address] SERVICES BUN (01/02/2018 18:48 EDT) Pathologist Sig nature BUN 15 10 - 26 mg/dl [facility] RY SERVICES Specimen Blood Performing Organization Address City/State/ZIP Code Phon e Number [facility] [address] [place] [address] SERVICES PAP TEST- RESULT ONLY (01/02/2018 0:00 EDT) Pathology Report: CYTOPATHOLOGY REPORT [facility] Reports generated via electronic interface contain maite ginal data; SERVICES however they are lacking the format of the original re port. Caution should be taken when reading/interpreting unfo rmatted reports. Name: ? RUBY LAINEZ ? Accession #: ? [id number] : ? 1970 (Age: 47) ??F ?Collect Date: ? 01/02 Location: ? [facility] ? Receive Date : ? 01/04/2018 Provider: ?NAS GONZALEZ MD Copy to: ?RAZIA OVALLE MD ? Specimen/Source: ? Pap Test, Cervix/Endocervix, ThinPrep Imaging System with manual evaluation Last Menstrual Period: ? Other: ? Additional clinical information: Z01.419 Z11.51 Z12.4 Z13.220 Z13.1 R63.1 ? SPECIMEN ADEQUACY ? Satisfactory for Evaluation - transformation zone component present GENERAL CATEGORIZATION ? Negative for Intraepithelial Lesion or Malignan cy ? Document reviewed and electronically signed by: ? FREDERICK Grimes(ASCP) ? Report Date: ??01/09/2018 14:27 End of Report Specimen Performing Organization Address City/State/ZIP Code Phon e Number [facility] [address] [place] [address] SERVICES documented in this encounter Visit Diagnoses Not on filedocumented in this encounter Care Teams Television Production Technician Relationship Specialty Start Date End Date Razia Ovalle MD PCP - General 02/22/[address] [place] [phone] documented as of this encounter
--- OUTSIDE RECORDS SUMMARY | 2021-11-13 00:11 | XMS_ITS | Encounter Summary ---
:1970 Author Organization [facility] Address [address] [place] [address] Care Team Providers Name Role Phone Razia Bernard MD Primary Care Provider Encounter Details Date Type Department Care Team Description 02/28/2019 Lab Requisition [facility] Unknown, Provider, Pathology & Laboratory [facility] [address] [facility] [place] [address] Social History Tobacco Use Types Packs/Day Years Used Date Never Assessed Sex Assigned at Date Recorded Not on file documented as of this encounter Discharge Disposition Disposition Code Departure Means Destination Home or Self Care documented in this encounter Plan of Treatment Not on filedocumented as of this encounter Procedures Procedure Name Priority Date/Time Associated Diagnosis Comme nts VARICELLA ZOSTER Routine 02/28/2019 12:15 Results for this VIRUS MOLECULAR EST procedure ar e in DETECTION, PCR the results section. HERPES SIMPLEX Routine 02/28/2019 12:15 Results f or this VIRUS MOLECULAR EST procedure ar e in DETECTION, PCR the results section. documented in this encounter Results (ABNORMAL) VARICELLA ZOSTER VIRUS MOLECULAR DETECTION, PCR (02/28/2019 12:15 EST) VARICELLA ZOSTER Positive (A)Comment: Negative [facility]ICAL VIRUS MOLECULAR This test was developed [facility] DETECTION, PCR and its performance SERVICES characteristics determined by [facility]. It has not been cleared or [...] complexity clinical laboratory testing. Specimen Swab - Entire forehead (body structure) Performing Organization Address City/State/ZIP Code Phon e Number [facility] [address] [place] [address] SERVICES HERPES SIMPLEX VIRUS MOLECULAR DETECTION, PCR (02/28/2019 12:15 EST) Pathologist Sig nature Herpes Simplex Virus Negative Negative [facility] Molecular Detection 1, LABORATORY SERVICE S PCR Herpes Simplex Virus Negative Negative [facility] Molecular Detection 2, LABORATORY SERVICE S PCR Specimen Swab - Entire forehead (body structure) Performing Organization Address City/[facility]/ZIP Code Phon e Number [facility] [address] [place] [address] SERVICES documented in this encounter Visit Diagnoses Not on filedocumented in this encounter Care Teams Superintendent Terminal Relationship Specialty Start Date End Date Razia Bernard MD PCP - General 02/22/[address] [place] [phone] documented as of this encounter
--- OUTSIDE RECORDS SUMMARY | 2021-11-13 00:11 | XMS_ITS | Encounter Summary ---
:[address] [facility] Address [address] [place] [address] Care Team Providers Name Role Phone Unavailable Primary Care Provider Unavailable Encounter Details Date Type Department Care Team Description 05/11/[address] [facility] - Dany Newman MD Maple conversion [address] [facility] [address] [place] [address] [place], [place] [id number] [phone] Social History Tobacco Use Types Packs/Day Years Used Date Never Assessed Sex Assigned at Date Recorded Not on file documented as of this encounter Plan of Treatment Not on filedocumented as of this encounter Procedures Procedure Name Priority Date/Time Associated Diagnosis Comme [facility] SURGICAL PATHOLOGY Routine 05/11/2006 0:00 EST Re sults for this procedure are i n the results section. documented in this encounter Results SURGICAL PATHOLOGY (05/11/2006 0:00 EST) Pathology Report: SURGICAL PATHOLOGY REPORT [facility] Reports generated via electronic interface contain maite ginal data; LAB however they are lacking the format of the original re port. Caution should be taken when reading/interpreting unfo rmatted reports. Name: ? RUBY LAINEZ ? Accession #: ? [id number] ? : ? 1970 (Age: 35) ??F ? Collect Date: ? 05/11/2006 ? Location: ? [facility] ? Receive Date: ? 007 ? Provider: DANY NEWMAN MD Copy to: DK OVALLE MD ? Final Pathologic Diagnosis: ? Gallbladder, cholecystectomy: 1. ?Chronic cholecystitis with mural fibr osis. 2. ? Cholelithiasis. 3. ? Pericystic hepatic parenchyma without specifi c pathologic features. Document reviewed and electronically signed by: REGAN GAITAN MD Report ??Date: 05/13/2006 22:39 By the signature above, the attending physician certif ies that he/she has personally conducted a gross and/or microscopic examin ation of the described specimens and rendered or confirmed the above diagnosi s. Specimen(s) Received: ? Gallbladder Clinical History: ? Biliary colic Gross Description: ? Received in formalin labelled Lainez and gallbladder is a 10.2 x 3.6 x 2.1 cm gallbladder. ??The serosa is hemorrhagic and re d-pink with diffuse overlying exudate. ??The lumen contains approximately 4.0 cc of tenacious brown-hinojosa bile along with three multifaceted finely manuel sselated mixed yellow-brown choleliths aver aging 1.3 cm in greatest dimension. ??The 0.7 x 0.3 cm cystic duct is probe patent. ??The mu cosa is trabeculated and pale hinojosa with patchy areas of hemorrhage w ithin the fundus. ??The wall ranges from 0.1 to 0.3 cm. ??A membership sales representative section of the fu ndus, body, and cystic duct margin (en face) is submitted in one cassette. ??(Rachel Murrieta/matt gandhi ?? End of Report Specimen Performing Organization Address City/State/ZIP Code Phon e Number [facility] [address] [place] [address] SERVICES [facility] [address] [place] [address] documented in this encounter Visit Diagnoses Not on filedocumented in this encounter
--- OUTSIDE RECORDS SUMMARY | 2021-11-13 00:11 | XMS_ITS | Encounter Summary ---
:1970 Author Organization [facility] Address [address] [place] [address] Care Team Providers Name Role Phone Razia Bernard MD Primary Care Provider Encounter Details Date Type Department Care Team Description 10/14/2005 Hospital Encounter [facility]ez Arreola Jr., Other MD [address] [facility] [address] [place] [address] [address] [phone] [place] [address] (Wo rk) Social History Tobacco Use Types Packs/Day Years Used Date Former Smoker Quit: 05/28/19 17 Smokeless Tobacco: Never Used Sex Assigned at Date Recorded Not on file documented as of this encounter Plan of Treatment Not on filedocumented as of this encounter Visit Diagnoses Not on filedocumented in this encounter Care Teams Exercise Scientist Relationship Specialty Start Date End Date Razia Bernard MD PCP - General 02/22/[address] [place] [phone] documented as of this encounter
--- OUTSIDE RECORDS SUMMARY | 2021-11-13 00:11 | XMS_ITS | Clinical Summary ---
:1970 Author Organization [facility] Address [address] [place] [address] Care Team Providers Name Role Phone Razia Bernard MD Primary Care Provider Allergies Active Allergy Reactions Severity Noted Date Comments Adhesive Rash 05/28/2019 Penicillins Swelling, Rash 02/28/2019 Sulfa (Sulfonamide Antibiotics) Swelling, Rash 019 Medications Medication Sig Dispensed Refills Start Date End Date Status Black Cohosh 540 mg Take by mouth 0 Active capsule daily. fexofenadine/pseudoephe Take by mouth 0 Active drine (NOEL-D 24 daily. HOUR ORAL) Encounters Date Type Specialty Care Team Description 09/21/2021 Lab Requisition Clinical Laboratory Razia Bernard MD En counter for gynecological examination (ge neral) (routine) witho ut abnormal findin gs from Last 3 Months Social History Tobacco Use Types Packs/Day Years Used Date Former Smoker Quit: 05/28/19 17 Smokeless Tobacco: Never Used Sex Assigned at Date Recorded Not on file Last Filed Vital Signs Vital Sign Reading Time Taken Comments Blood Pressure 122/86 02/28/2019 1152 EST Pulse 80 02/28/2019 1152 EST Temperature 36.9 ??C (98.4 ??F) 02/28/2019 1152 EST Respiratory Rate 20 02/28/2019 1152 EST Oxygen Saturation - - Inhaled Oxygen Concentration - - Weight - - Height - - Body Mass Index - - Plan of Treatment Health Maintenance Due Date Last Done Comments Hepatitis C Screen 1970 COVID-19 Vaccine (#1) 07/22/1975 Procedures Procedure Name Priority Date/Time Associated Diagnosis [...] re sults (routine) without section. abnormal findings from Last 3 Months Results PAP TEST (09/18/2021 1:30 EDT) Specimens A. Cervix and/or [facility] MEDICAL Endocervix , ThinPrep CENTER Imaging System with LABORATORY Manual Evaluation SERVICES Specimen Adequacy Satisfactory for [facility] Evaluation - [place] transformation zone LABORATORY component present SERVICES General Negative for [facility] intraepithelial [place] lesion or malignancy LABORATORY SERVICES Attestation . [facility] signed by Brad benedict, LABORATORY MARLEY Serna( CP) SERVICES on 09/30/2021 at 1456 Clinical History SEE BELOW [facility] HPV The result for the Human Pap illomavirus (HPV) Detection-High Risk Types is Negative. No E6 or E7 mRNA is detected from HPV types 16,18,31,33,35,39,45,51,52,56,58,59,66, and 68 by hole puncher strap mediated [facility] amplification.Testing was pe rformed on specimen [id number] and was resulted on 09/30/2021 1431 EDT by PADMA, LAB INSTRUMENT RESULTS IN [facility] LABORATORY SERVICES Performing Lab [facility] LAB [facility] SERVICES Scanned Images [facility] SERVICES Specimen Pap Test - Cervix and/or Endocervix Performing Organization Address City/State/ZIP Code Phon e Number [facility] [address] [place] [address] SERVICES HUMAN PAPILLOMAVIRUS (HPV) DETECTION-HIGH RISK TYPES (09/18/2021 1:30 EDT) Human Papillomavirus NegativeComment: No Negative [facility] (HPV) Detection-High E6 or E7 mRNA is CENTER LABORATOR Y Types detected from HPV SERVICES types 16,18,31,33,35,39,45 ,51,52,56,58,59,66, and 68 by hole puncher strap mediated amplification. Specimen Pap Test - Cervix and/or Endocervix Performing Organization Address City/State/ZIP [facility] Phon e Number [facility] [address] [place] [address] SERVICES from Last 3 Months Insurance Payer Benefit Plan / Subscriber ID Effective Phone Address T ype Group Dates [facility] [id number] 2019-Prese [phone] [address] [facility] [employer] nt [address] [place] [address] Ruby Delcid Personal/Family Self 1970 [address] [place] [id number] Ruby Delcid Personal/Family Self 1970 [address] [place] [id number] Ruby Delcid M Personal/Family Self 1970 [address] [place] [id number] DelcidRuby Personal/Family Self 1970 [address] [place] [id number] Ruby Delcid M Personal/Family Self 1970 [address] [place] [id number] Ruby Delcid M Personal/Family Self 1970 [address] [place] [id number] Ruby Delcid Personal/Family Self 1970 [address] [place] [id number] Care Teams Book Editor Relationship Specialty Start Date End Date Razia Bernard MD PCP - General 02/22/[address] [place] [phone]
--- OUTSIDE RECORDS SUMMARY | 2021-11-13 00:11 | XMS_ITS | Encounter Summary ---
:1970 Author Organization [facility] Address [address] [place] [address] Care Team Providers Name Role Phone Unavailable Primary Care Provider Unavailable Encounter Details Date Type Department Care Team Description 03/01/2011 Results Only [place] Razia Ovalle MD Laboratory Services - [address] [facility] [address] [place], [place] [address] [place] [phone] [place] [address] [phone] Social History Tobacco Use Types Packs/Day Years Used Date Never Assessed Sex Assigned at Date Recorded Not on file documented as of this encounter Plan of Treatment Not on filedocumented as of this encounter Procedures Procedure Name Priority Date/Time Associated Diagnosis Comme nts PAP TEST- RESULT Routine 03/01/2011 0:00 EST Resu lts for this ONLY procedure are i n the results section. documented in this encounter Results PAP TEST- RESULT ONLY (03/01/2011 0:00 EST) Pathology Report: CYTOPATHOLOGY REPORT [facility] Reports generated via electronic interface contain maite ginal data; however they are lacking the format of the original re port. Caution should be taken when reading/interpreting unfo rmatted reports. Name: ? RUBY LAINEZ ? Accession #: ? [id number] : ? 1970 (Age: 40) ??F ?Collect Date: ? 02/16 Location: ? [facility] ? Receive Date : ? 03/03/2011 Provider: ?RAZIA OVALLE MD Copy to: ? Specimen/Source: ? Pap Test, Cervix/Endocervix, ThinPrep Imaging System with manual evaluation Last Menstrual Period: ? 02/10/2011 ? SPECIMEN ADEQUACY ? Satisfactory for Evaluation - transformation zone component present - scant squamous epithelial component secondary to exc essive inflammation GENERAL CATEGORIZATION ? Negative for Intraepithelial Lesion or Malignan cy INTERPRETATION ? Reactive cellular martell nges associated with inflammation present (includes repair). ? Document reviewed and electronically signed by: ? TOLU MAYER MD ? Report Date: ??03/10/2011 16:47 End of Report Specimen Performing Organization Address City/State/ZIP Code Phon e Number [facility] [address] [place] [address] SERVICES [facility] [address] [place] [address] documented in this encounter Visit Diagnoses Not on filedocumented in this encounter
--- OUTSIDE RECORDS SUMMARY | 2021-11-13 00:11 | XMS_ITS | Encounter Summary ---
:1970 Author Organization [facility] Address [address] [place] [address] Care Team Providers Name Role Phone Unavailable Primary Care Provider Unavailable Encounter Details Date Type Department Care Team Description 10/01/2005 [facility] - Cortez Arreola Jr., Converted Visit Jacqueline branham MD ([place]) [address] [facility] [address] [place] [address] [phone] [place] [address] (Wo rk) Social History Tobacco Use Types Packs/Day Years Used Date Never Assessed Sex Assigned at Date Recorded Not on file documented as of this encounter Progress Notes Cortez Arreola MD - 04/11/2009 0102 EST DIVISION OF PLASTIC RECONSTRUCTIVE SURGERY PROGRESS/FOLLOWUP NOTE - 10/01/2005 Ruby returns in follow up for a preoperative discussion prior to a bilateral reduction mammoplasty.She has continued to have a stable weight and has had no major change in her health history. Her exam is unchanged. Impression Doing well, good candidate for reduction mammoplasty. We had a discussion of the risks and benefits of surgery including risks of wound healing problems, wound separation, skin necrosis, nipple denervation, fat necrosis and pain syndrome. All questions were answered to her satisfaction. Shegives consent for surgery. Signed by Cortez Arreola MD 09/09/2005 08:56 Lucie Arreola, Joe Arreola MD Cortez Arreola MD - Cortez Arreola MD A - chr Job ID: [id number] Document ID: [id number] cc: Razia Bernard MD documented in this encounter Plan of Treatment Not on filedocumented as of this encounter Visit Diagnoses Not on filedocumented in this encounter
--- OUTSIDE RECORDS SUMMARY | 2021-11-13 00:11 | XMS_ITS | Encounter Summary ---
:1970 Author Organization [facility] Address [address] [place] [address] Care Team Providers Name Role Phone Razia Bernard MD Primary Care Provider Reason for Visit Reason Onset Date Comments Results 03/01/2019 Encounter Details Date Type Department Care Team Description 03/01/2019 Telephone [facility] Gilbert Trejo, RN Results [facility] [place] [address] [place] [address] Social History Tobacco Use Types Packs/Day Years Used Date Never Assessed Sex Assigned at Date Recorded Not on file documented as of this encounter Miscellaneous Notes Telephone Encounter - Gilbert Trejo, RN - 03/01/2019 5493 EST Patient notified of lab results on 03/01/19 and advised to continue treatment. Patient verbalized understanding. documented in this encounter Plan of Treatment Not on filedocumented as of this encounter Visit Diagnoses Not on filedocumented in this encounter Care Teams Superintendent Laundry Relationship Specialty Start Date End Date Razia Bernard MD PCP - General 02/22/[address] [place] [phone] documented as of this encounter
--- OUTSIDE RECORDS SUMMARY | 2021-11-13 00:11 | XMS_ITS | Encounter Summary ---
:1970 Author Organization [facility] Address [address] [place] [address] Care Team Providers Name Role Phone Razia Ovalle MD Primary Care Provider Encounter Details Date Type Department Care Team Description 12/21/2016 Results Only [facility] Nas Gonzalez, [address] [place] [address] [address] [place] [address] (Wo rk) Social History Tobacco Use Types Packs/Day Years Used Date Never Assessed Sex Assigned at Date Recorded Not on file documented as of this encounter Plan of Treatment Not on filedocumented as of this encounter Procedures Procedure Name Priority Date/Time Associated Diagnosis Comme nts COMPLETE BLOOD Routine 12/21/2016 19:16 Results f or this COUNT EDT procedure are i n the results section. PAP TEST- RESULT Routine 12/21/2016 0:00 EDT Resu lts for this ONLY procedure are i n the results section. documented in this encounter Results HEMAGRAM (12/21/2016 19:16 EDT) Pathologist Sig nature WBC 9.73 4.0 - 12.4 K/cmm [facility] RBC 4.60 3.86 - 5.04 M/cmm [facility] Hemoglobin 14.7 11.6 - 15.2 gm/dl [facility] HCT 42.2 34.9 - 44.4 % [facility] MCV 92 81 - 98 fl [facility] MCH 32.0 26.7 - 33.3 pg [facility] MCHC 34.8 32.1 - 35.9 gm/dl [facility] RDW-CV 11.9 <14.7 % [facility] RDW-SD 40.1 <50.4 fl [facility] PLT 254 141 - 377 K/cmm [facility] MPV 11.5 9.5 - 12.7 fl [facility] Specimen Blood Performing Organization Address City/State/ZIP Code Phon e Number [facility] [address] [place] [address] SERVICES PAP TEST- RESULT ONLY (12/21/2016 0:00 EDT) Pathology Report: CYTOPATHOLOGY REPORT [facility] Reports generated via electronic interface contain maite ginal data; SERVICES however they are lacking the format of the original re port. Caution should be taken when reading/interpreting unfo rmatted reports. Name: ? RUBY LAINEZ Ginger ? Accession #: ? [id number] ? : ? 1970 (Age: 46 ) ??F ?Collect Date: ? 2016 ? Location: ? [facility] ? Receive Date: ? 7 ? Provider: NAS GONZALEZ MD Copy to: RAZIA OVALLE MD ? Final Report SPECIMEN ADEQUACY ? Satisfactory for Evaluation - transformation zone component present GENERAL CATEGORIZATION ? Negative for Intraepithelial Lesion or Malignan cy ?? Specimen/Source: ??Pap Test, Cervix, ThinPrep Imaging System with manual evaluation Document reviewed and electronically signed by: ? MARLEY Deluna(ASCP) ? Report ??Date: 12/30/2016 12:34 HPV with Pap Test ? Date Ordered: ? 12/30/2016 ? Status: ?? Signed Out ?Date Complete: ? 12/31/2016 ? By: ??Sy stem Interface ? Date Reported: ? 12/31/2016 ? Interpretation RESULT: Negative for HPV. No E6 or E7 mRNA is detected from HPV types 16,18,31,3 3,35, 39,45,51,52,56,58,59,66, and 68 by head silverman media steff amplification. Comments Document reviewed and electronically signed by: ? System Interface ? Report date: 12/31/2016 By the signature above, the attending physician certif ies that he/she has personally conducted a gross and/or microscopic examin ation of the described specimens and rendered or confirmed the above diagnosi s. End of Report Specimen Performing Organization Address City/State/ZIP Code Phon e Number [facility] [address] [place] [address] SERVICES documented in this encounter Visit Diagnoses Not on filedocumented in this encounter Care Teams Solar Panel Installation Supervisor Relationship Specialty Start Date End Date Razia Ovalle MD PCP - General 02/22/[address] [place] [phone] documented as of this encounter
--- OUTSIDE RECORDS SUMMARY | 2021-11-13 00:11 | XMS_ITS | Encounter Summary ---
:1970 Author Organization [facility] Address [address] [place] [address] Care Team Providers Name Role Phone Razia Bernard MD Primary Care Provider Encounter Details Date Type Department Care Team Description 01/02/2018 Hospital Encounter [facility] - Shirley Angulo [facility] Emily Whelan MD [address] [address] [place] [address] Social History Tobacco Use Types Packs/Day Years Used Date Never Assessed Sex Assigned at Date Recorded Not on file documented as of this encounter Discharge Diagnoses Diagnosis Z01.419 Encounter for gynecological exam ination (general) (routine) without abnormal findings-Z01.419[ICD-10-CM] Z11.51 Encounter for screening for human papillomavirus (HPV)-Z11.51[ICD-10-CM] Z12.4 Encounter for screening for malign ant neoplasm of cervix-Z12.4[ICD-10-CM] Z13.220 Encounter for screening for lipo id disorders-Z13.220[ICD-10-CM] Z13.1 Encounter for screening for diabet es mellitus-Z13.1[ICD-10-CM] R63.1 Polydipsia-R63.1[ICD-10-CM] documented in this encounter Discharge Disposition Disposition Code Departure Means Destination Home or Self Care documented in this encounter Plan of Treatment Not on filedocumented as of this encounter Visit Diagnoses Not on filedocumented in this encounter Care Teams Loan Adviser Relationship Specialty Start Date End Date Razia Bernard MD PCP - General 02/22/[address] [place] [phone] documented as of this encounter
--- OUTSIDE RECORDS SUMMARY | 2021-11-13 00:11 | XMS_ITS | Encounter Summary ---
:1970 Author Organization [facility] Address [address] [place] [address] Care Team Providers Name Role Phone Unavailable Primary Care Provider Unavailable Encounter Details Date Type Department Care Team Description 05/11/2007 Results Only [facility] - Marisol Larios MD Maple conversion [address] [place] [address] [place] [address] Social History Tobacco Use Types Packs/Day Years Used Date Never Assessed Sex Assigned at Date Recorded Not on file documented as of this encounter Plan of Treatment Not on filedocumented as of this encounter Procedures Procedure Name Priority Date/Time Associated Diagnosis Comme [facility] SURGICAL PATHOLOGY Routine 05/11/2007 0:00 EST Re sults for this procedure are i n the results section. documented in this encounter Results SURGICAL PATHOLOGY (05/11/2007 0:00 EST) Pathology Report: SURGICAL PATHOLOGY REPORT [facility] Reports generated via electronic interface contain maite ginal data; LAB however they are lacking the format of the original re port. Caution should be taken when reading/interpreting unfo rmatted reports. Name: ? RUBY LAINEZ ? Accession #: ? [id number] ? : ? 1970 (Age: 36) ??F ? Collect Date: ? 05/11/2007 ? Location: ? [facility] ? Receive Date: ? 008 ? Provider: ALOK LARIOS MD Copy to: DK OVALLE MD ? Final Pathologic Diagnosis: ? Endometrium, curettage: - Late secretory endometrium. ?? Document reviewed and electronically signed by: DIONNE BARRETO MD Report ??Date: 05/15/2007 15:21 By the signature above, the attending physician certif ies that he/she has personally conducted a gross and/or microscopic examin ation of the described specimens and rendered or confirmed the above diagnosi s. Specimen(s) Received: ? Uterine curettings endometrial Clinical History: ? Menorrhagia, , LMP: Apr 25 Gross Description: ? Received in formalin labelled Lainez and nd erine curettings endometrial are 2.0 x 2.0 x 0.5 cm of red-brown hemor rhagic soft tissue fragments. ??The specimen is entirely submitted in one cassette following filtration. (Denny Hernandez/[facility] End of Report Specimen Performing Organization Address City/State/ZIP Code Phon e Number [facility] [address] [place] [address] SERVICES [facility] [address] [place] [address] documented in this encounter Visit Diagnoses Not on filedocumented in this encounter
--- OUTSIDE RECORDS SUMMARY | 2021-11-13 00:11 | XMS_ITS | Encounter Summary ---
:1970 Author Organization [facility] Address [address] [place] [address] Care Team Providers Name Role Phone Razia Bernard MD Primary Care Provider Encounter Details Date Type Department Care Team Description 01/18/2017 Hospital Encounter [facility] MD Cleopatra [address] [address] [place] [address] Social History Tobacco Use Types Packs/Day Years Used Date Never Assessed Sex Assigned at Date Recorded Not on file documented as of this encounter Discharge Diagnoses Diagnosis R22.0 Localized swelling, mass and lump, head-R22.0[ICD-10-CM] L29.9 Pruritus, unspecified-L29.9[ICD-10 -CM] documented in this encounter Discharge Disposition Disposition Code Departure Means Destination Home or Self Care documented in this encounter Plan of Treatment Not on filedocumented as of this encounter Visit Diagnoses Not on filedocumented in this encounter Care Teams Health Plan Advisor Relationship Specialty Start Date End Date Razia Bernard MD PCP - General 02/22/[address] [place] [phone] documented as of this encounter
--- OUTSIDE RECORDS SUMMARY | 2021-11-13 00:11 | XMS_ITS | Encounter Summary ---
:1970 Author Organization [facility] Address [address] [place] [address] Care Team Providers Name Role Phone Razia Bernard MD Primary Care Provider Reason for Visit Reason Onset Date Comments Other 03/04/2019 Encounter Details Date Type Department Care Team Description 03/04/2019 Telephone [facility] Other [facility] - [address] [phone] Social History Tobacco Use Types Packs/Day Years Used Date Never Assessed Sex Assigned at Date Recorded Not on file documented as of this encounter Ordered Prescriptions Prescription Sig Dispensed Refills Start Date End Date meloxicam (MOBIC) 7.5 mg Take 1 Tab by mouth 20 Tab 0 03/14/2019 tablet 2 times daily for 10 days. documented in this encounter Miscellaneous Notes Telephone Encounter - Bethany Eddy LPN - 03/04/2019 1218 EST Pt told. Pt says has appt with opthalmologist tomorrow at noon for eval. elephone Encounter - Bethany Eddy LPN - 03/04/2019 1214 EST [email or web address] Addendum Note - Anabela White PA - 03/04/2019 1213 EST Addended by: ANABELA WHITE on: 03/04/2019 12:13 Modules accepted: Orders elephone Encounter - Anabela White PA - 03/04/2019 1209 EST I can send a medication called Meloxicam that she should take with food. This is an NSAID class of drug and so she should not take additional aleve or advil. She may also take tylenol(acetaminophen) for pain, up 1000mg tylenol TID. elephone Encounter - Bethany Eddy LPN - 03/04/2019 1158 EST Sending to provider for review. elephone Encounter - Tyesha Sheth - 03/04/2019 0908 EST PT was here last week with DX of shingles, she is finding that she is in much more pain and was wondering if she should come in or if we can call something in for her. Please call documented in this encounter Plan of Treatment Not on filedocumented as of this encounter Visit Diagnoses Not on filedocumented in this encounter Care Teams Pit Inspector Relationship Specialty Start Date End Date Razia Bernard MD PCP - General 02/22/[address] [place] [phone] documented as of this encounter
--- OUTSIDE RECORDS SUMMARY | 2021-11-13 00:11 | XMS_ITS | Encounter Summary ---
:1970 Author Organization [facility] Address [address] [place] [address] Care Team Providers Name Role Phone Razia Bernard MD Primary Care Provider Encounter Details Date Type Department Care Team Description 12/21/2016 Hospital Encounter [facility] Ang[facility] Emily Whelan MD [address] [address] [place] [address] Social History Tobacco Use Types Packs/Day Years Used Date Never Assessed Sex Assigned at Date Recorded Not on file documented as of this encounter Discharge Diagnoses Diagnosis Z01.411 Encounter for gynecological exam ination (general) (routine) with abnormal findings-Z01.411[ICD-10-CM] Z12.4 Encounter for screening for malign ant neoplasm of cervix-Z12.4[ICD-10-CM] Z11.51 Encounter for screening for human papillomavirus (HPV)-Z11.51[ICD-10-CM] M79.81 Nontraumatic hematoma of soft tis verito-M79.81[ICD-10-CM] documented in this encounter Discharge Disposition Disposition Code Departure Means Destination Home or Self Care documented in this encounter Plan of Treatment Not on filedocumented as of this encounter Visit Diagnoses Not on filedocumented in this encounter Care Teams Sole Seamer Relationship Specialty Start Date End Date Razia Bernard MD PCP - General 02/22/[address] [place] [phone] documented as of this encounter
--- OUTSIDE RECORDS SUMMARY | 2021-11-13 00:11 | XMS_ITS | Encounter Summary ---
:1970 Author Organization [facility] Address [address] [place] [address] Care Team Providers Name Role Phone Razia Bernard MD Primary Care Provider Reason for Visit Reason Comments Rash lft forehead/hair line since this am Encounter Details Date Type Department Care Team Description 02/28/2019 Walk-In [facility] - Dorys Butcher Herpes zoster with [facility] [place] ophthalmic [place] [address] complication, [address] [place], [place] [address] zoster eye disease [id number] (Primary Dx) [phone] Social History Tobacco Use Types Packs/Day Years Used Date Never Assessed Sex Assigned at Date Recorded Not on file documented as of this encounter Last Filed Vital Signs Vital Sign Reading Time Taken Comments Blood Pressure 122/86 02/28/2019 1152 EST Pulse 80 02/28/2019 1152 EST Temperature 36.9 ??C (98.4 ??F) 02/28/2019 1152 EST Respiratory Rate 20 02/28/2019 1152 EST Oxygen Saturation - - Inhaled Oxygen Concentration - - Weight - - Height - - Body Mass Index - - documented in this encounter Patient Instructions Patient InstructionsToJessica de oliveira Aprn, APRN - 02/28/2019 11:45 EST Images from the original note were not included. You likely have a rash from shingles. This is a viral infection. Because your eye is involved I recommend you see your eye doctor in 2-3 days for a recheck. Use over the counter eye drops such as gen-teal eye drops every 1-2 hours to keep your eyes moist. [facility] Patient Instructions Shingles: Care Instructions Your Care Instructions Shingles (herpes zoster) causes pain and a blistered rash. The rash can appear anywhere on the body but will be on only one side of the body, the left or right. It will be in a band, a strip, or a small area. The pain can be very severe. Shingles can also cause tingling or itching in the area of the rash. The blisters scab over after a few days and heal in 2 to 4 weeks. Medicines can help you feel better and may help prevent more serious problems caused by shingles. Shingles is caused by the same virus that causes chickenpox. When you have chickenpox, the virus gets into your nerve roots and stays there (becomes dormant) long after you get over the chickenpox. If the virus becomes active again, it can cause shingles. Follow-up care is a sprague part of your treatment and safety. Be sure to make and go to all appointments, and call your doctor if you are having problems. It's also a good idea to know your test results and keep a list of the medicines you take. How can you care for yourself at home? ?? Be safe with medicines. Take your medicines exactly as prescribed. Call your doctor if you think you are having a problem with your medicine. Antiviral medicine helps you get better faster. ?? Try not to scratch or pick at the blisters. They will crust over and fall off on their own if youleave them alone. ?? Put cool, wet cloths on the area to relieve pain and itching. You can also use calamine lotion. Try not to use so much lotion that it cakes and is hard to get off. ?? Put cornstarch or baking soda on the sores to help dry them out so they heal faster. ?? Do not use thick ointment, such as petroleum jelly, on the sores. This will keep them from dryingand healing. ?? To help remove loose crusts, soak them in tap water. This can help decrease oozing, and dry and soothe the skin. ?? Take an hjzw-gir-uejvgsn pain medicine, such as acetaminophen (Tylenol), ibuprofen (Advil, Motrin), or naproxen (Aleve). Read and follow all instructions on the label. ?? Avoid close contact with people until the blisters have healed. It is very important for you to avoid contact with anyone who has never had chickenpox or the chickenpox vaccine. women, young babies, and anyone else who has a hard time fighting infection (such as someone with HIV, diabetes,or cancer) is especially at risk. When should you call for help? Call your doctor now or seek immediate medical care if: ? You have a new or higher fever. ? You have a severe headache and a stiff neck. ? You lose the ability to think clearly. ? The rash spreads to your forehead, nose, eyes, or eyelids. ? You have eye pain, or your vision gets worse. ? You have new pain in your face, or you cannot move the muscles in your face. ? Blisters spread to new parts of your body. ??Watch closely for changes in your health, and be sure to contact your doctor if: ? The rash has not healed after 2 to 4 weeks. ? You still have pain after the rash has healed. Where can you learn more? Go to https://www.[employer].net/uvEmiSense Technologiesealth or log into your [employer] account at [email or web address] Enter X176 in the search box to learn more about Shingles: Care Instructions. Current as of: September 24, 2018 Content Version: 12.2 ?? [id number] [employer]. Care instructions adapted under license by [facility]. If you have questions about a medical condition or this instruction, always ask your healthcare professional. [employer] disclaims any warranty or liability for your use of this information. documented in this encounter Ordered Prescriptions Prescription Sig Dispensed Refills Start Date End Date valACYclovir (VALTREX) 500 Take 2 Tabs by 42 Tab 0 02/2803/07/2019 mg tabletIndications: mouth 3 times daily Herpes zoster with for 7 days. ophthalmic complication, unspecified herpes zoster eye disease documented in this encounter Progress Notes Jessica Butcher Aprn, PARALEGAL LEGAL SECRETARY - 02/28/2019 1145 EST [facility] Chief Complaint(s): Rash (lft forehead/hair line since this am) HPI: Rash This is a new problem. The current episode started yesterday. The problem is unchanged. The affectedlocations include the face and scalp. The rash is characterized by blistering, pain and swelling. She was exposed to nothing. Associated symptoms include fatigue. Pertinent negatives include no anorexia, eye pain or facial edema. (Tingling and sharp shooting pains to left nose and left face) Past treatments include nothing. Her past medical history is significant for varicella. I have reviewed current problem list and current medications. ROS: Review of Systems Constitutional: Positive for fatigue. HENT: Negative for ear pain, hearing loss and tinnitus. Eyes: Negative for pain. Gastrointestinal: Negative for anorexia. Skin: Positive for rash. Neurological: Positive for tingling. Negative for dizziness and focal weakness. Objective: Examination: Vitals: BP 122/86 Pulse 80 Temp 36.9 ??C (98.4 ??F) (Oral) Resp 20 There is no height or weight on file to calculate BMI. Physical Exam Constitutional: She appears well-developed and well-nourished. No distress. HENT: Left Ear: External ear normal. Nose: Nose normal. Mouth/Throat: Oropharynx is clear and moist. Eyes: Pupils are equal, round, and reactive to light. Conjunctivae and EOM are normal. Left upper eyelid ptosis Neck: Normal range of motion. Neck supple. Cardiovascular: Normal rate and regular rhythm. Pulmonary/Chest: Effort normal and breath sounds normal. Skin: Skin is warm and dry. Rash noted. Papular erythematous lesions distributed over left forehead, scalp along hairline and left upper eyelid Psychiatric: She has a normal mood and affect. Vitals reviewed. Assessment & Plan: 1. 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 Likely is varicella however cx sent for identification.Advised in opthamology/optemetry surveillance until rash is resolved and to make first appt with them in next 2-3 days. She will begin artificial tears today to keep eye lubricated in an effort to prevent corneal ulceration with current ptsosis. - HERPES SIMPLEX VIRUS MOLECULAR DETECTION, PCR - valACYclovir (VALTREX) 500 mg tablet; Take 2 Tabs by mouth 3 times daily for 7 days. Dispense: 42 Tab; Refill: 0 - VARICELLA ZOSTER VIRUS MOLECULAR DETECTION, PCR documented in this encounter Plan of Treatment Scheduled Orders Name Type Priority Associated Diagnoses Order S chedule HERPES SIMPLEX VIRUS Microbiology Routine Herpes Zoster With O rdered: 02/28/2019 MOLECULAR DETECTION, Ophthalmic PCR Complication, Unspecified Herpes Zoster Eye Disease documented as of this encounter Procedures Procedure Name Priority Date/Time Associated Diagnosis Comme nts VARICELLA ZOSTER Routine 02/28/2019 12:15 Herpes zoster with R esults for this VIRUS MOLECULAR EST ophthalmic procedure ar e in DETECTION, PCR complication, the results unspecified herpes section. zoster eye disease documented in this encounter Results (ABNORMAL) VARICELLA ZOSTER VIRUS MOLECULAR DETECTION, PCR (02/28/2019 12:15 EST) PAPO SPEC Left Forehead [facility] VARIZELLA ZOSTER Positive (H) Negative [facility] DNA RESULT - [facility] [place]: [facility] Result called to [facility] 03/01/19 1508: Result called by KT This test was developed and its performance characteri stics determined by [facility]. It has not been cleared or approved by the US Food and Drug Administration. FDA does not require this test to go through premarket FDA review. This test is used for clinical purposes. It should not be regarded as investigational or research. This laboratory is certif ied under the Clinical Laboratory Improvement Amendments ( CLIA) as qualified to perform high complexity clinical labor atory testing. [place] [address] Source:left forehead NOTE: RESULTS HAVE BEEN REFORMATTED PLEASE REVIEW RESULTS CAREFULLY THE LOCATION OF INFORMATION MAY HAVE CHANGED Test [place] [address] Specimen Skin (tissue) specimen (specimen) Performing Organization Address City/State/ZIP Code Phon e Number [facility] [address] [place] [address] [facility] documented in this encounter Visit Diagnoses Diagnosis Herpes zoster with ophthalmic complicati on, unspecified herpes zoster eye disease - Primary documented in this encounter Historical Medications This list may reflect changes made after this encounter. Medication Sig Dispensed Refills Start Date End Date fexofenadine/pseudoephedri Take by mouth daily. 0 ne (NOEL-D 24 HOUR ORAL) Black Cohosh 540 mg Take by mouth daily. 0 capsule added in this encounter Care Teams Backshoe Person Relationship Specialty Start Date End Date Razia Bernard MD PCP - General 02/22/[address] [place] [phone] documented as of this encounter
--- OUTSIDE RECORDS SUMMARY | 2021-11-13 00:11 | XMS_ITS | Encounter Summary ---
:1970 Author Organization [facility] Address [address] [place] [address] Care Team Providers Name Role Phone Razia Bernard MD Primary Care Provider Encounter Details Date Type Department Care Team Description 01/18/2017 Results Only [facility] Nas Gonzalez, [address] [place] [address] [address] [place] [address] (Wo rk) Social History Tobacco Use Types Packs/Day Years Used Date Never Assessed Sex Assigned at Date Recorded Not on file documented as of this encounter Plan of Treatment Not on filedocumented as of this encounter Procedures Procedure Name Priority Date/Time Associated Diagnosis Comme [facility] SURGICAL PATHOLOGY Routine 01/18/2017 8:45 EDT Re sults for this procedure are i n the results section. documented in this encounter Results SURGICAL PATHOLOGY (01/18/2017 8:45 EDT) Pathology SURGICAL PATHOLOGY REPORT [facility] MEDICAL Report: Reports generated via electronic interface conta in original data; CENTER however they are lacking the format of the original re port. LABORATORY Caution should be taken when reading/interpretin g unformatted reports. SERVICES Name: ? RUBY LAINEZ ? Accession #: ? [id number] ? : ? 1970 (Age: 46 ) ??F ? Collect Date: ? 01/18/2017 ? Location: ? [facility] ? Receive Date: ? 01/20/20 17 ? Provider: NAS GONZALEZ MD Copy to: ? Final Pathologic Diagnosis: A. ??SKIN OF EYEBROW REGION, ABOVE LEFT EYEBROW, SHAVE BIOPSY:- Verruca vulgaris. B. ??SKIN OF NECK, SHAVE BIOPSY:- Melanocytic nevus, i ntradermal type. Microscopic Description: (1) The stratum corneum is thickened by compact orthohyperkeratosis with tiers of parakeratosis and foci of hemorrhage. ??The e pidermis is hyperplastic with papillomatosis and acanthosis. ??The acanthotic rete r idges have an inward-bending configuration. ??The supe rficial keratinocytes have perinuclear vacuoles. ??The granular layer is accentuated. ?? (2) Sections are of a papule with mild epidermal hyperplasia and hyperkeratosis. There is a proliferation of melanocytes within the dermis. ??The proliferation consists of nests, cords, and strands that dimin maikel in size with descent into the dermis. ??The melanocyte s are slightly enlarged but generally have round-oval nuclei and a moderate amount of cytoplasm. ??The melan ocytes show voip network technician maturation. ??There is moder ately dense lymphocytic infiltrate. ??(Dr. Roe)/[facility] Document reviewed and electronically signed by: MARIA DOLORES ROE MD Report ??Date: 01/20/2017 16:23 By the signature above, the attending physician certif ies that he/she has personally conducted a gross and/or microscopic examin ation of the described specimens and rendered or confirmed the above diagnosi s. Specimen(s) Received: Shave biopsy skin lesion above L eyebrow (affixe d to cork); shave bx pruritic neck lesion Clinical History: Warty enlarging growth over L eyebrow; pruritic neck lesion; clinical diagnosis code: ??R22.0, L29.9 Gross Description: ? Received in formalin labelled with proper patient identification (initials C, T) and 1. L upper brow region on core, 2. neck les ion are two polypoid fragments of soft tissue. Tissue #1 is hinojosa-white (0.3 x 0.3 x 0.2 cm) and received pinned to a corkboa rd. Tissue #2 is hinojosa-brown (0.3 x 0.3 x 0.2 cm) and received free floating withi n the container. The margin of both tissues is inked blue. The specimens are entirely submitt ed in 1 (tissue #1, submitted in toto) and 2 (tissue #2, submitted in toto). ISAAC Marroquin (ASCP) 01/19/2017 10:03 AM End of Report Specimen Performing Organization Address City/State/ZIP Code Phon e Number [facility] [address] [place] [address] SERVICES documented in this encounter Visit Diagnoses Not on filedocumented in this encounter Care Teams Agricultural Chemicals Inspector Relationship Specialty Start Date End Date Razia Bernard MD PCP - General 02/22/[address] [place] [phone] documented as of this encounter
--- OUTSIDE RECORDS SUMMARY | 2021-11-13 00:11 | XMS_ITS | Encounter Summary ---
:1970 Author Organization [facility] Address [address] [place] [address] Care Team Providers Name Role Phone Unavailable Primary Care Provider Unavailable Encounter Details Date Type Department Care Team Description 02/28/2006 Results Only [facility], Demetris whittaker, Pediatric Psychology - [address] [place] [address] Office [address], [phone] [place] [phone] (Wo rk) Social History Tobacco Use Types Packs/Day Years Used Date Never Assessed Sex Assigned at Date Recorded Not on file documented as of this encounter Plan of Treatment Not on filedocumented as of this encounter Procedures Procedure Name Priority Date/Time Associated Diagnosis Comme nts CYTOPATHOLOGY Routine 02/28/2006 0:00 EST Results for this procedure are i n the results section . documented in this encounter Results CYTOPATHOLOGY (02/28/2006 0:00 EST) Pathology Report: CYTOPATHOLOGY REPORT [facility] Reports generated via electronic interface contain maite ginal data; however they are lacking the format of the original re port. Caution should be taken when reading/interpreting unfo rmatted reports. Name: ? RUBY LAINEZ ? Accession #: ? [id number] : ? 1970 (Age: 35) ??F ?Collect Date: ? 02/16 Location: ? [facility] ? Receive Date : ? 03/01/2006 Provider: ?DEMETRIS NAIK MD Copy to: ? Specimen/Source: ? ThinPrep Pap Test, Cervix, processed on [employer] ThinPrep Imaging System, with manual evaluation Last Menstrual Period: ? 1 week Hormonal/Contraceptive Status: ? Control Pills Other: ? HPVA - HPV testing requested if ASC-US on the current ThinPrep Pap test. ? SPECIMEN ADEQUACY ? Satisfactory for Evaluation - transformation zone component present GENERAL CATEGORIZATION ? Negative for Intraepithelial Lesion or Malignan cy ? Document reviewed and electronically signed by: ? FREDERICK Tuttle(ASCP) ? Report Date: ??03/07/2006 11:17 End of Report Specimen Performing Organization Address City/State/ZIP Code Phon e Number [facility] [address] [place] [address] SERVICES [facility] [address] [place] [address] documented in this encounter Visit Diagnoses Not on filedocumented in this encounter
--- OUTSIDE RECORDS SUMMARY | 2021-11-13 00:12 | XMS_ITS | CCD ---
:1970 Author Care Team Providers Name Role Phone MICHEL MELENDEZ Attending Physician Unavailable MICHEL MELENDEZ Rounding (Secondary) Physician Unavailab le Vital Signs Unknown or Not Available. Allergies Allergy Code Allergy Type Reaction Status PCN (penicillin) 0 Drug allergy UNKNOWN Active SULFA (SULFONAMIDE ANTIBIOTICS) {Clinical 0 Drug allergy UNKNOWN Active monitoring unavailable} Procedures Unknown or Not Available. History of Immunizations Immunization Code Date COVID-19, mRNA, LNP-S, PF, 30 mcg/0.3 mL dose 12/28/2020 COVID-19, mRNA, LNP-S, PF, 30 mcg/0.3 mL dose 01/18/2021 Problems Unknown or Not Available. Results Unknown or Not Available. Active Medications Unknown or Not Available. Medications Administered During Visit Unknown or Not Available. Encounters Encounter Diagnosis Diagnosis Code Start Date Follow-up orthopedic assessment [id number] 03/11/20 21 Social History Smoking Status Code Start Date End Date Never smoker [id number] Patient Decision Aids Unknown or Not Available. Discharge Instructions You were admitted to [facility] on 03/11/2021 13:43 with a principal diagnosis of Encounter for other orthopedic afterc are You were discharged from [facility] on 03/11/2021 00:00 Should you have any questions prior to d ischarge, please contact a member of your healthcare team. If you have left the ho spital and have any questions, please contact your primary care physician. Chief Complaint and Reason For Visit Unknown or Not Available. Function Status Unknown or Not Available. Plan of Care Unknown or Not Available. Referral/Transition of Care Unknown or Not Available.
--- OUTSIDE RECORDS SUMMARY | 2021-11-13 00:12 | XMS_ITS | Encounter Summary ---
:1970 Author Organization [facility] Address [address] [place] [address] Care Team Providers Name Role Phone Unavailable Primary Care Provider Unavailable Encounter Details Date Type Department Care Team Description 03/14/2001 Results Only [facility] - Esme Flowers od, AIRPLANE DISPATCH CLERK [address] [place] [phone] (Wo rk) Social History Tobacco Use Types Packs/Day Years Used Date Never Assessed Sex Assigned at Date Recorded Not on file documented as of this encounter Plan of Treatment Not on filedocumented as of this encounter Procedures Procedure Name Priority Date/Time Associated Diagnosis Comme [facility] CYTOPATHOLOGY Routine 03/14/2001 0:00 EST Results for this procedure are i n the results section . documented in this encounter Results CYTOPATHOLOGY (03/14/2001 0:00 EST) Pathology Report: CYTOPATHOLOGY REPORT [facility] Reports generated via electronic interface contain maite ginal data; however they are lacking the format of the original re port. Caution should be taken when reading/interpreting unfo rmatted reports. Name: ? RUBY LAINEZ ? Accession #: ? [id number] : ? 1970 (Age: 30) ??F ?Collect Date: ? 02/17 Location: ? [facility] ? Receive Date : ? 03/15/2001 Provider: ?ESME REDMOND AIRPLANE DISPATCH CLERK Copy to: ? Specimen/Source: ?ThinPrep Pap Test, Cervix/ Endocervix Last Menstrual Period: ? 02/13/01 Hormonal/Contraceptive Status: ? Oral contraceptives ? SPECIMEN ADEQUACY ? Satisfactory for evaluation. GENERAL CATEGORIZATION ? Within Normal Limits ? Document reviewed and electronically signed by: ? MARLEY Head(ASCP) ? Report Date: ??03/20/2001 09:07 End of Report Specimen Performing Organization Address City/State/ZIP Code Phon e Number [facility] [address] [place] [address] SERVICES [facility] [address] [place] [address] documented in this encounter Visit Diagnoses Not on filedocumented in this encounter
--- OUTSIDE RECORDS SUMMARY | 2021-11-13 00:12 | XMS_ITS | Encounter Summary ---
:1970 Author Organization [facility] Address [address] [place] [address] Care Team Providers Name Role Phone Unavailable Primary Care Provider Unavailable Encounter Details Date Type Department Care Team Description 02/23/2005 Hospital Encounter [facility] [place]Jessica MD [id number] [place] [address] Maria Elena Ayala, [facility] [phone] Office Building, [address] [place] [phone] (Wo rk) Social History Tobacco [...]
--- OUTSIDE RECORDS SUMMARY | 2021-11-13 00:12 | XMS_ITS | Encounter Summary ---
:[address] [facility] Address [address] [place] [address] Care Team Providers Name Role Phone Unavailable Primary Care Provider Unavailable Encounter Details Date Type Department Care Team Description 07/06/2005 Hospital Encounter [facility] - Cortez Arreola Jr., Other MD [address] [facility] [address] [place] [address] [address] [phone] [address] [place] [phone] (Wo rk) Social History Tobacco Use Types Packs/Day Years Used Date Never Assessed Sex Assigned at Date Recorded Not on file documented as of this encounter Discharge Disposition Disposition Code Departure Means Destination Auto Discharge documented in this encounter Plan of Treatment Not on filedocumented as of this encounter Visit Diagnoses Not on filedocumented in this encounter
--- OUTSIDE RECORDS SUMMARY | 2021-11-13 00:12 | XMS_ITS | Encounter Summary ---
:1970 Author Organization [facility] Address [address] [place] [address] Care Team Providers Name Role Phone Unavailable Primary Care Provider Unavailable Encounter Details Date Type Department Care Team Description 07/06/2005 [facility] - Cortez Arreola Jr., Converted Visit Jacqueline branham MD (Maple) [address] [facility] [address] [place] [address] Drive [phone] [address] [place] [address] (Wo rk) Social History Tobacco Use Types Packs/Day Years Used Date Never Assessed Sex Assigned at Date Recorded Not on file documented as of this encounter Progress Notes Cortez Arreola MD - 03/28/2009 1148 EST DIVISION OF PLASTIC RECONSTRUCTIVE SURGERY PROGRESS/FOLLOWUP NOTE - 07/06/2005 Ruby is a self-referred woman who presents because of problems due to the size of her breasts. She reports that she has been large breasted throughout her entire adult life. She has had three pregnancies and childrenand breastfed each child and has had an increase in her breast size with each child. She currently has back, neck, and shoulder pain due to the size of her breasts, as well as having inframammary fold rashes and shoulder grooving. She has sought the attention of a physical therapist dueto her back pain, who has recommended that she have breast reduction surgery. Her past medical history is unremarkable. SHE DOES HAVE AN ALLERGY TO PENICILLIN AND SULFA. She currently takes oral control pills.Her only prior surgery is a colonoscopy. She is a nonsmoker and nondrinker. She has no personal nor family history of breast cancer. Her review of systems is on the chart and is positive only for a colon polyp. Her remaining review of systems were negative. On examination, the patient appears her stated height of 5 feet 4 inches. She weighs 177 lbs. today.Her breasts are quite large and ptotic and out of proportion to the rest of her body. There are no skin retractions. There is no axillarylymphadenopathy. She has no dominant skin masses. The suprasternal notch to nipple distance is 34 cm on the left and 31 cm on the right. The inframammary fold distance of the suprasternal notch is 22 cm. Inframammary fold to nipple distance is 13 cm on the left and 12 cm on the right. IMPRESSION: Mammary hypertrophy causing postural and musculoskeletal back, shoulder, and neck pain. I think that breast reduction surgery is medically indicated. I think that she lose in the range of 500-700 grams of tissue per side and that she would have an improvement in her musculoskeletal condition and intertriginous skin rashes. I talked with her about the risks of surgery, including the risk of a nipple denervation, wound healing problems, and fat necrosis.She understands these risks and indicates she wishes to proceed. We will contact her insurance company for prior approval and schedule her after that is obtained. Signed by Cortez Arreola MD 07/08/2005 17:20 Joe Schneider MD Cortez Arreola MD - Cortez Arreola MD P - lbr Job ID: [id number] Document ID: [id number] cc: Razia Bernard MD documented in this encounter Plan of Treatment Not on filedocumented as of this encounter Visit Diagnoses Not on filedocumented in this encounter
--- OUTSIDE RECORDS SUMMARY | 2021-11-13 00:12 | XMS_ITS | Encounter Summary ---
:1970 Author Organization [facility] Address [address] [place] [address] Care Team Providers Name Role Phone Unavailable Primary Care Provider Unavailable Encounter Details Date Type Department Care Team Description 09/14/2005 Before PRISM Converted [facility] - Elaine Hale Visit (Maple) Maple conversion MD [facility] 111 [facility] [address] [place] [address] [place], [place] [phone] Social History Tobacco Use Types Packs/Day Years Used Date Never Assessed Sex Assigned at Date Recorded Not on file documented as of this encounter Progress Notes Orlando Hale MD - 04/11/2009 0121 EST DIVISION OF PLASTIC RECONSTRUCTIVE SURGERY PROGRESS/FOLLOWUP NOTE - 09/14/2005 Ruby is a 34-year-old patient of Johnny Awan underwent bilateral breast reduction eleven days previously using a [place] pattern with superior medial pedicle. The patient is doing quite well. She has no significant problems postoperatively. The wounds are clean, dry and intact. She is continuing to wear postoperative support. She will follow up with Dr. Arreola six weeks from the time of surgery. She knows to call if she has any problems in the intervening time. Signed by Orlando Hale MD 09/29/2005 13:50 Adnrew Galvez MD Orlando Hale MD - Orlando Hale MD P - chr Job ID: [id number] Document ID: [id number] cc: Orlando Hale MD - 04/11/2009 0114 EST DIVISION OF PLASTIC RECONSTRUCTIVE SURGERY PROGRESS/FOLLOWUP NOTE - 09/14/2005 follows up after bilateral breast reduction by Johnny Arreola. She is concerned that her left nipple may have some issues. She does have some very mild epidermolysis of the central portion of this nipple on the left and also notes some mildly decreasedsensation on the left. Otherwise the patient is doing very well. She will follow up with Dr. Arreola six weeks from the time of surgery. Signed by Orlando Hale MD 09/29/2005 13:50 Andrew Galvez MD Orlando Hale MD D: - Orlando Hale MD A - chr Job ID: Document ID: [id number] cc: documented in this encounter Plan of Treatment Not on filedocumented as of this encounter Visit Diagnoses Not on filedocumented in this encounter
--- OUTSIDE RECORDS SUMMARY | 2021-11-13 00:12 | XMS_ITS | CCD ---
:1970 Author Care Team Providers Name Role Phone CORAL CA Attending Physician Unavailable Vital Signs Unknown or Not Available. Allergies [...] 01/18/2021 Problems Unknown or Not Available. Results [facility] COVID RHEONIX* - Collect Date/Sameer e: 02/25/2021 11:06 Test Name Code Test Result Test Units Test Ref Range SOURCE= Anterior nasal N/A Tier- PRE-OP N/A SARS COV2 RNA: 80044-7 NEGATIVE N/A REFERENCE RAN GE: NEGAT Active Medications Unknown or Not Available. Medications Administered During Visit Unknown or Not Available. Encounters Encounter Diagnosis Diagnosis Code Start Date Pre-surgery testing [id number] 02/25/2021 Social History Smoking Status Code Start Date End Date Never smoker [id number] Patient Decision Aids Unknown or Not Available. Discharge Instructions You were admitted to [facility] on 02/25/2021 06:18 with a principal diagnosis of Encounter for preprocedural laborator y examination You had the following tests done: COPLE Y COVID RHEONIX* You were discharged from [facility] on 02/25/2021 06:18 Should you have any questions prior to [...]
--- OUTSIDE RECORDS SUMMARY | 2021-11-13 00:12 | XMS_ITS | Encounter Summary ---
:1970 Author Organization [facility] Address [address] [place] [address] Care Team Providers Name Role Phone Unavailable Primary Care Provider Unavailable Encounter Details Date Type Department Care Team Description 04/04/2002 Results Only [facility] - Ladi Mckeon CNM [facility] [address] [place] [address] Social History Tobacco Use Types Packs/Day Years Used Date Never Assessed Sex Assigned at Date Recorded Not on file documented as of this encounter Plan of Treatment Not on filedocumented as of this encounter Procedures Procedure Name Priority Date/Time Associated Diagnosis Comme nts CYTOPATHOLOGY Routine 04/04/2002 0:00 EST Results for this procedure are i n the results section . documented in this encounter Results CYTOPATHOLOGY (04/04/2002 0:00 EST) Pathology Report: CYTOPATHOLOGY REPORT [facility] Reports generated via electronic interface contain maite ginal data; however they are lacking the format of the original re port. Caution should be taken when reading/interpreting unfo rmatted reports. Name: ? RUBY LAINEZ ? Accession #: ? [id number] : ? 1970 (Age: 31) ??F ?Collect Date: ? 03/18 Location: ? [facility] ? Receive Date : ? 04/06/2002 Provider: ?LADI CRUZ CNM Copy to: ? Specimen/Source: ?ThinPrep Pap Test, Cervix/ Endocervix Last Menstrual Period: ? 02/06/02 Menstrual/ Status: ? SPECIMEN ADEQUACY ? Satisfactory for Evaluation - transformation zone component present GENERAL CATEGORIZATION ? Negative for Intraepithelial Lesion or Malignan cy ? Document reviewed and electronically signed by: ? MARLEY Hallman(ASCP)(IAC) ? Report Date: ??04/09/2002 15:38 End of Report Specimen Performing Organization Address City/State/ZIP Code Phon e Number [facility] [address] [place] [address] SERVICES [facility] [address] [place] [address] documented in this encounter Visit Diagnoses Not on filedocumented in this encounter
--- OUTSIDE RECORDS SUMMARY | 2021-11-13 00:12 | XMS_ITS | CCD ---
:1970 Author Care Team Providers Name Role Phone DELFINA JIN MD Attending Physician Unavailable Vital Signs Unknown or [...] 01/18/2021 Problems Unknown or Not Available. Results [facility] COVID RHEONIX - Collect Date/Time : 01/15/2021 11:00 Test Name Code Test Result Test Units Test Ref Range SOURCE= Anterior nasal N/A Tier- SYMPTOMS N/A SARS COV2 RNA: 99462-7 NEGATIVE N/A REFERENCE RAN GE: NEGAT Active Medications Unknown or Not Available. Medications Administered During Visit Unknown or Not Available. Encounters Encounter Diagnosis Diagnosis Code Start Date Contact with and (suspected) exposure to other viral [id number] 01/15/2021 communicable diseases Social History Smoking Status Code Start Date End Date Never smoker [id number] Patient Decision Aids Unknown or Not Available. Discharge Instructions You were admitted to [facility] on 01/15/2021 23:42 with a principal diagnosis of Contact with and (suspected ) exposure to other viral communicable diseases You had the following tests done: COPLE Y COVID RHEONIX You were discharged from [facility] on 01/15/2021 23:42 Should you have any questions prior to [...]
--- OUTSIDE RECORDS SUMMARY | 2021-11-13 00:12 | XMS_ITS | Encounter Summary ---
:1970 Author Organization [facility] Address [address] [place] [address] Care Team Providers Name Role Phone Razia Bernard MD Primary Care Provider Encounter Details Date Type Department Care Team Description 09/14/2005 Hospital Encounter [facility] - Cortez Arreola Jr., Other MD [facility] [address] [place] [address] [address] [phone] [address] [place] [address] (Wo rk) Social History Tobacco Use Types Packs/Day Years Used Date Former Smoker Quit: 05/28/19 17 Smokeless Tobacco: Never Used Sex Assigned at Date Recorded Not on file documented as of this encounter Plan of Treatment Not on filedocumented as of this encounter Visit Diagnoses Not on filedocumented in this encounter 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
--- OUTSIDE RECORDS SUMMARY | 2021-11-13 00:12 | XMS_ITS | CCD ---
:1970 Author Care Team Providers Name Role Phone ЕЛЕНА MACARIO Attending Physician Unavailable ЕЛЕНА MACARIO Rounding (Secondary) Physician Unavailab le Vital Signs [...] Encounters Encounter Diagnosis Diagnosis Code Start Date Traumatic dislocation of tarsometatarsal joint [id number] 02/24/2021 Social History Smoking Status Code Start Date End Date Never smoker [id number] Patient Decision Aids Unknown or Not Available. Discharge Instructions You were admitted to [facility] on 02/24/2021 13:01 with a principal diagnosis of Dislocation of tarsometatarsal joint of right foot, initial encounter You were discharged from [facility] on 02/24/2021 00:00 Should you have any questions prior [...]
--- OUTSIDE RECORDS SUMMARY | 2021-11-13 00:12 | XMS_ITS | Encounter Summary ---
:1970 Author Organization [facility] Address [address] [place] [address] Care Team Providers Name Role Phone Unavailable Primary Care Provider Unavailable Encounter Details Date Type Department Care Team Description 03/04/2000 Results Only [facility] - Esme Flowers od, ELASTIC CUTTER [address] [place] [phone] (Wo rk) Social History Tobacco Use Types Packs/Day Years Used Date Never Assessed Sex Assigned at Date Recorded Not on file documented as of this encounter Plan of Treatment Not on filedocumented as of this encounter Procedures Procedure Name Priority Date/Time Associated Diagnosis Comme [facility] CYTOPATHOLOGY Routine 03/04/2000 0:00 EST Results for this procedure are i n the results section . documented in this encounter Results CYTOPATHOLOGY (03/04/2000 0:00 EST) Pathology Report: CYTOPATHOLOGY REPORT [facility] Reports generated via electronic interface contain maite ginal data; however they are lacking the format of the original re port. Caution should be taken when reading/interpreting unfo rmatted reports. Name: ? RUBY LAINEZ ? Accession #: ? [id number] : ? 1970 (Age: 29) ??F ?Collect Date: ? 02/16 Location: ? [facility] ? Receive Date : ? 03/08/2000 Provider: ?ESME REDMOND ELASTIC CUTTER Copy to: ? Specimen/Source: ?ThinPrep Pap Test, Cervix/ Endocervix Last Menstrual Period: ? 02/20/00 Hormonal/Contraceptive Status: ? Oral contraceptives ? SPECIMEN ADEQUACY ? Satisfactory for evaluation. GENERAL CATEGORIZATION ? Within Normal Limits ? Document reviewed and electronically signed by: ? MARLEY Head(ASCP) ? Report Date: ??03/16/2000 11:16 End of Report Specimen Performing Organization Address City/State/ZIP Code Phon e Number [facility] [address] [place] [address] SERVICES [facility] [address] [place] [address] documented in this encounter Visit Diagnoses Not on filedocumented in this encounter
--- OUTSIDE RECORDS SUMMARY | 2021-11-13 00:12 | XMS_ITS | CCD ---
:1970 Author Care Team Providers Name Role Phone CORAL CA Attending Physician Unavailable Vital Signs Vital Sign Value Unit Date/Time Recent/Initial? BP Systolic 123 mmHg 02/27/2021 12:16 Initial VS BP Diastolic 81 mmHg 02/27/2021 12:16 Initial VS Respiratory Rate 11 bpm 02/27/2021 12:16 Initial VS Heart Rate 74 bpm 02/27/2021 12:16 Initial VS O2 % BldC Oximetry 99 % 02/27/2021 12:16 Initi al VS Body Temperature 36.2 degrees 02/27/2021 12:16 Initial VS Allergies Allergy Code Allergy Type Reaction Status PCN (penicillin) 0 Drug allergy UNKNOWN Active SULFA (SULFONAMIDE ANTIBIOTICS) {Clinical 0 Drug allergy UNKNOWN Active monitoring unavailable} Procedures Procedure Code Procedure Type Date Open Treatment, Tarsometatarsal Joint Dislocation 89435 CPT 02/27/2021 w/wo Int Fixation Anesthesia, Open Proc, Bones, Lower 01191 CPT 02/27/2021 Leg/Ankle/Foot; NOS History of Immunizations Immunization Code Date COVID-19, mRNA, LNP-S, PF, 30 mcg/0.3 mL dose 208 12/28/2020 COVID-19, mRNA, LNP-S, PF, 30 mcg/0.3 mL dose 208 01/18/2021 Problems Unknown or Not Available. Results Unknown or Not Available. Active Medications Medications Administered During Visit Medication Dose Units Frequency Route Date/Time of L ast Dose LACTATED RINGERS 1000ML 1000 ML X1 1 04/29/2020 08:43 MIDAZOLAM INJ SDV: 2MG/2ML 2 MG X1 IVP 02/27/2021 09:42 PROMETHAZINE SUPPOSITORY: 25 MG PRN IN PACU X1 MT 02/27/2021 11:53 25MG ONDANSETRON INJ SDV: 4 MG PRN IN PACU X1 IVP 02/27/2021 11:54 4MG/2ML KETOROLAC INJ SDV: 30MG/1ML 30 MG PRN IN PACU X1 IVP 02/27/2021 12:00 ACETAMINOPHEN INJ SDV: 1000 MG PRN IN PACU X1 02/27/2021 12:04 1000MG/100ML Encounters Encounter Diagnosis Diagnosis Code Start Date Dislocation of tarsometatarsal joint of right foot, [id number] 02/27/2021 initial encounter Social History Smoking Status Code Start Date End Date Never smoker [id number] Patient Decision Aids Unknown or Not Available. Discharge Instructions You were admitted to [facility] on 02/27/2021 08:02 with a principal diagnosis of Dislocation of tarsometatarsal joint of right foot, initial encounter You had the following procedures done: Open Treatment, Tarsometatarsal Joint Dislocation w/wo Int Fixation Anesthesia , Open Proc, Bones, Lower Leg/Ankle/Foot; NOS You were discharged from [facility] on 02/27/2021 14:10 Should you have any questions prior to [...]
--- OUTSIDE RECORDS SUMMARY | 2021-11-13 00:12 | XMS_ITS | Encounter Summary ---
:1970 Author Organization [facility] Address [address] [place] [address] Care Team Providers Name Role Phone Unavailable Primary Care Provider Unavailable Encounter Details Date Type Department Care Team Description 09/03/2005 Results Only [facility] PlasticElba Donald R Jr., Reconstructive & Cosmetic MD Surgery - [facility] [address], [address] [place] [address] [place], [place] [phone] (Wo rk) Social History Tobacco Use Types Packs/Day Years Used Date Never Assessed Sex Assigned at Date Recorded Not on file documented as of this encounter Plan of Treatment Not on filedocumented as of this encounter Procedures Procedure Name Priority Date/Time Associated Diagnosis Comme [facility] SURGICAL PATHOLOGY Routine 09/03/2005 0:00 EDT Re sults for this procedure are i n the results section. documented in this encounter Results SURGICAL PATHOLOGY (09/03/2005 0:00 EDT) Pathology Report: SURGICAL PATHOLOGY REPORT [facility] Reports generated via electronic interface contain maite ginal data; LAB however they are lacking the format of the original re port. Caution should be taken when reading/interpreting unfo rmatted reports. Name: ? RUBY LAINEZ ? Accession #: ? [id number] ? : ? 1970 (Age: 35) ??F ? Collect Date: ? 09/03/2005 ? Location: ? [facility] ? Receive Date: ? 2005 ? Provider: DELFINA ROSENBAUM MD Copy to: DK OVALLE MD ? Final Pathologic Diagnosis: A. ?Breast, left, reduction mammoplasty: 1. ?Specimen weight 430 grams. 2. ?Benign breast tissue with: ? 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 - Prominent duct ectasia and focal microcyst formation . - Adenosis. - Interlobular fibrosis. 3. ?Skin with no specific pathologic feat ures. B. ?Breast, right, reduction mammoplasty: 1. ?Specimen weight 225 grams. 2. ?Benign breast tissue with: ? 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 - Prominent duct ectasia and focal microcyst formation . - Adenosis. - Interlobular fibrosis. 3. ?Skin with no specific pathologic feat ures. Document reviewed and electronically signed by: REGAN GAITAN MD Report ??Date: 09/07/2005 21:35 By the signature above, the attending physician certif ies that he/she has personally conducted a gross and/or microscopic examin ation of the described specimens and rendered or confirmed the above diagnosi s. Specimen(s) Received: A. ?Left breast tissue B. ?Right breast tissue Clinical History: ? Ramesh breast hypertrophy Gross Description: ? Received fresh labelled Lainez and left breast tissue are multiple fibroadipose tissue fragments weighing 4 30 grams in aggregate and ranging from 5.0 x 3.5 x 1.5 cm to 20.0 x 18.0 x 3.5 cm. ??The largest fragment is covered by grossly unremarkable skin me asuring 18.0 x 18.0 cm. ??A separate, irregular skin fragment measuring 9.0 x 6.0 cm is also identified. ??The specimen is serially sectioned to reveal yellow, soft, and grossly unremark able adipose tissue admixed with irregular, white, rubbery tissue. ??Repre sentative sections are submitted as (A1) to (A6). ?? Received fresh labelled Lainez and right breast ti ssue are multiple fibroadipose tissue fragments weighing 2 25 grams in aggregate and ranging from 3.0 x 2.5 x 0.5 cm to 20.0 x 8.0 x 2.5 cm. ??The large st two fragments are covered by unremarkable skin measuring 20.0 x 7.0 cm a nd 4.5 x 2.5 cm. ??Two separate, irregular fragment s measuring 5.0 x 2.0 cm and 10.0 x 3.0 cm are also identified and are grossly u nremarkable. ??The specimen is serially sectioned to reveal grossly unremarkable adipose tiss ue admixed with white, irregular, firm areas of fibrosis. ??Gauge Maker Apprentice sections are submi tted as follows: BLOCK ROSE B1 ?Skin with underlying tissue B2-B6 ?Gauge Maker Apprentice sections of fibrous areas (Dr. Fisher-VALENTINO)/[facility] End of Report Specimen Performing Organization Address City/State/ZIP Code Phon e Number [facility] [address] [place] [address] SERVICES [facility] [address] [place] [phone] documented in this encounter Visit Diagnoses Not on filedocumented in this encounter
--- OUTSIDE RECORDS SUMMARY | 2021-11-13 00:12 | XMS_ITS | Encounter Summary ---
:1970 Author Organization [facility] Address [address] [place] [address] Care Team Providers Name Role Phone Unavailable Primary Care Provider Unavailable Encounter Details Date Type Department Care Team Description 02/23/2005 Results Only [facility], Demetris whittaker, Pediatric Psychology - [address] [place] [address] Office Building, [phone] [place] [phone] (Wo rk) Social History Tobacco Use Types Packs/Day Years Used Date Never Assessed Sex Assigned at Date Recorded Not on file documented as of this encounter Plan of Treatment Not on filedocumented as of this encounter Procedures Procedure Name Priority Date/Time Associated Diagnosis Comme nts CYTOPATHOLOGY Routine 02/23/2005 0:00 EST Results for this procedure are i n the results section . documented in this encounter Results CYTOPATHOLOGY (02/23/2005 0:00 EST) Pathology Report: CYTOPATHOLOGY REPORT [facility] Reports generated via electronic interface contain maite ginal data; however they are lacking the format of the original re port. Caution should be taken when reading/interpreting unfo rmatted reports. Name: ? RUBY LAINEZ ? Accession #: ? [id number] : ? 1970 (Age: 34) ??F ?Collect Date: ? 11/2004 Location: ? [facility] ? Receive Date : ? 02/24/2005 Provider: ?DEMETRIS NAIK MD Copy to: ? Specimen/Source: ? ThinPrep Pap Test, Cervix, processed on [employer] ThinPrep Imaging System, with manual evaluation Last Menstrual Period: ? 02/16/05 ? SPECIMEN ADEQUACY ? Satisfactory for Evaluation - transformation zone component present GENERAL CATEGORIZATION ? Negative for Intraepithelial Lesion or Malignan cy ? Document reviewed and electronically signed by: ? Ladi Estevez, SCT(ASCP) ? Report Date: ??03/02/2005 10:28 End of Report Specimen Performing Organization Address City/State/ZIP Code Phon e Number [facility] [address] [place] [address] SERVICES [facility] [address] [place] [address] documented in this encounter Visit Diagnoses Not on filedocumented in this encounter
--- OUTSIDE RECORDS SUMMARY | 2021-11-13 00:12 | XMS_ITS | Encounter Summary ---
:1970 Author Organization [facility] Address [address] [place] [address] Care Team Providers Name Role Phone Unavailable Primary Care Provider Unavailable Encounter Details Date Type Department Care Team Description 09/03/2005 Hospital Encounter [facility] Cortez Arreola, Perioperative Services- [address] [address] [address] [place] [address] (Wo rk) Social History Tobacco Use Types Packs/Day Years Used Date Never Assessed Sex Assigned at Date Recorded Not on file documented as of this encounter Discharge Disposition Disposition Code Departure Means Destination Home or Self Care documented in this encounter OR Notes OR Surgeon - Cortez Arreola MD - 09/03/2005 0000 EDT PROCEDURE REPORT PT TYPE: OPPROC PT LOC: [id number] SERVICE DATE: 09/03/2005 SURGEON: Joe Schneider MDDonald R Laub, MD CLINICAL REGISTERED NURSE: Barak Quinn MD; ISAAC Bryson; Warren Jamison MS PREOPERATIVE DIAGNOSIS: Bilateral mammary hypertrophy. POSTOPERATIVE DIAGNOSIS: Bilateral mammary hypertrophy. PROCEDURE: Bilateral reduction mammoplasty. ANESTHESIA: General endotracheal. INDICATIONS: The patient is a 35-year-old woman, who has had musculoskeletal back pain due to the size of her breasts. She has inframammary fold rashes and shoulder grooving. She is, therefore, indicated a bilateral reduction mammoplasty. FINDINGS: The patient had markedly ptotic breasts with breast atrophy. The amount of breast tissue removed from the right side was 237 grams and from the left side was 450 grams. NARRATIVE: After preoperative discussion, the patient gave informed consent, was properly identified, brought to the operating room, and general endotracheal anesthesia was obtained. Her breasts were prepped and draped in the usual sterile fashion. The surgery was begun on the left side. A temporary tourniquet was placed around the base of the breast. A circumferential incision was made in the nippleareolar complex, 4.2-cm in diameter. A superior medial pedicle was deepithelialized. The tourniquet was then removed. The remaining incisions were made. A flap was elevated and then the pedicle was trimmed to size by removing breast tissue superiorly, laterally, and inferiorly to the pedicle. Hemostasis was established with electrocautery. The wound was irrigated with copious amounts of normal saline. A temporary closure of jerome was performed. An identical procedure was performed on the The patient was brought to a semi- sitting position and symmetry was judged to be good. The jerome were removed and replaced with a closure of 3-0 Monocryl sutures in the deep dermis and a running 4-0 Monocryl subcuticular suture. The nipple areolar complexes were inset using 4-0 Monocryl interrupted deep dermal suture and a 5-0 fast absorbing plain gut skin suture. The patient tolerated the procedure well. She was extubated and brought to the postanesthetic care unit in stable condition. I was present for the entire case. Signed by Cortez Arreola MD 09/07/2005 09:24 Joe Schneider MD Cortez Arreola MD - Cortez Arreola MD A - aniyah Job ID: [id number] Document ID: [id number] cc: MD Razia Beyer MD Donald R Laub, MD documented in this encounter Plan of Treatment Not on filedocumented as of this encounter Visit Diagnoses Not on filedocumented in this encounter
--- OUTSIDE RECORDS SUMMARY | 2021-11-13 00:13 | XMS_ITS | CCD ---
:1970 Author Care Team Providers Name Role Phone CORAL CA Attending Physician Unavailable CORAL CA Rounding (Secondary) Physician Unavailab le Vital Signs [...] Start Date Traumatic dislocation of tarsometatarsal joint [id number] 04/14/2021 Social History Smoking Status Code Start Date End Date Never smoker [id number] Patient Decision Aids Unknown or Not Available. Discharge Instructions You were admitted to [facility] on 04/14/2021 16:26 with a principal diagnosis of Dislocation of tarsometatarsal joint of right foot, subsequent encounter You were discharged from [facility] on 04/14/2021 00:00 Should you have any questions prior [...]
--- OUTSIDE RECORDS SUMMARY | 2021-11-13 00:13 | XMS_ITS | CCD ---
:1970 Author Care Team Providers Name Role Phone CORAL CA Attending Physician Unavailable Vital Signs Vital Sign Value Unit Date/Time Recent/Initial? BMI (Body Mass Index) 35.43 kg/m^2 07/01/2021 07:51 In itial VS Weight Measured 200 lbs 07/01/2021 07:51 Initial VS Height 63 in 07/01/2021 07:51 Initial VS BSA (Body Surface Area) 2.01 m^2 07/01/2021 07:51 Initial VS BP Systolic 112 mmHg 07/10/2021 10:37 Initial VS BP Diastolic 80 mmHg 07/10/2021 10:37 Initial VS Respiratory Rate 18 bpm 07/10/2021 10:37 Initial VS Heart Rate 70 bpm 07/10/2021 10:37 Initial VS O2 % BldC Oximetry 99 % 07/10/2021 10:37 Initi al VS Body Temperature 36 degrees 07/10/2021 10:37 Initial VS Allergies Allergy Code Allergy Type Reaction Status PCN (penicillin) 0 Drug allergy UNKNOWN Active TAPE 0 Allergy to substance SOME Active TAPES/ADHESIVE-PAPER TAPE OK SULFA (SULFONAMIDE 0 Drug allergy UNKNOWN Active ANTIBIOTICS) {Clinical monitoring unavailable} Procedures Procedure Code Procedure Type Date Removal, Implant; Deep 08429 CPT 2 Anesthesia, Open Proc, Bones, Lower 59170 CPT 07/10/2021 Leg/Ankle/Foot; NOS History of Immunizations Immunization Code Date COVID-19, mRNA, LNP-S, PF, 30 mcg/0.3 mL dose 12/28/2020 COVID-19, mRNA, LNP-S, PF, 30 mcg/0.3 mL dose 01/18/2021 Problems Unknown or Not Available. Results TEST (URINE) QUALITATIVE - Col lect Date/Time: 07/10/2021 08:19 Test Name Code Test Result Test Units Test Ref Range TEST 2105-06 NEGATIVE N/A Active Medications Medications Administered During Visit Medication Dose Units Frequency Route Date/Time of L ast Dose LACTATED RINGERS 1000ML 1000 ML X1 0 07/10/2021 08:57 MIDAZOLAM INJ SDV: 2MG/2ML 2 MG X1 IVP 07/10/2021 09:12 CLINDAMYCIN IVPB PREMIX: 900 MG X1 07/10/2021 09:20 900MG/50ML ACETAMINOPHEN INJ SDV: 1000 MG PRN IN PACU X1 07/10/2021 10:50 1000MG/100ML Encounters Encounter Diagnosis Diagnosis Code Start Date Pain due to internal orthopedic prosthetic devices, [id number] 07/10/2021 implants and grafts, initial encounter Social History Smoking Status Code Start Date End Date Never smoker [id number] Patient Decision Aids Unknown or Not Available. Discharge Instructions You were admitted to [facility] on 07/10/2021 08:10 with a principal diagnosis of Complications of Specified Implanted Device or Graft You had the following procedures done: Removal, Implant; Deep Anesthesia, Open Proc, Bones, Lower Leg/Ankle/Foot; NOS You had the following tests done: PREGN RHETT TEST (URINE) QUALITATIVE You were discharged from [facility] on 07/10/2021 11:20 Should you have any questions prior to d ischarge, please contact a member of your healthcare team. If you have left the ho spital and have any questions, please contact your primary care physician. Chief Complaint and Reason For Visit Chief Complaint Date of Onset HARDWARE REMOVAL RIGHT FOOT 30MIN OP Function Status Unknown or Not Available. Plan of Care Unknown or Not Available. Referral/Transition of Care Unknown or Not Available.
--- OUTSIDE RECORDS SUMMARY | 2021-11-13 00:13 | XMS_ITS | CCD ---
[...] UNKNOWN Active ANTIBIOTICS) {Clinical monitoring unavailable} Procedures Unknown or Not Available. [...] Start Date Traumatic dislocation of tarsometatarsal joint [id number] 08/18/2021 Social History Smoking Status Code Start Date End Date Never smoker [id number] Patient Decision Aids Unknown or Not Available. Discharge Instructions You were admitted to on 08/18/2021 13:06 with a principal diagnosis of Dislocation of tarsometatarsal joint of right foot, subsequent encounter You were discharged from on 08/18/2021 00:00 Should you have any questions prior [...]
--- OUTSIDE RECORDS SUMMARY | 2021-11-13 00:13 | XMS_ITS | CCD ---
[...] Start Date Traumatic dislocation of tarsometatarsal joint [id number] 05/26/2021 Social History Smoking Status Code Start Date End Date Never smoker [id number] Patient Decision Aids Unknown or Not Available. Discharge Instructions You were admitted to [facility] on 05/26/2021 15:04 with a principal diagnosis of Dislocation of tarsometatarsal joint of right foot, subsequent encounter You were discharged from [facility] on 05/26/2021 00:00 Should you have any questions prior [...]
--- OUTSIDE RECORDS SUMMARY | 2021-11-13 00:13 | XMS_ITS | CCD ---
[...] Start Date Traumatic dislocation of tarsometatarsal joint [id number] 02/27/2021 Social History Smoking Status Code Start Date End Date Never smoker [id number] Patient Decision Aids Unknown or Not Available. Discharge Instructions You were admitted to [facility] on 02/27/2021 15:40 with a principal diagnosis of Dislocation of tarsometatarsal joint of right foot, initial encounter You were discharged from [facility] on 02/27/2021 15:40 Should you have any questions prior to [...]
--- OUTSIDE RECORDS SUMMARY | 2021-11-13 00:13 | XMS_ITS | CCD ---
[...] Start Date Traumatic dislocation of tarsometatarsal joint [id number] 03/16/2021 Social History Smoking Status Code Start Date End Date Never smoker [id number] Patient Decision Aids Unknown or Not Available. Discharge Instructions You were admitted to [facility] on 03/16/2021 14:00 with a principal diagnosis of Dislocation of tarsometatarsal joint of right foot, subsequent encounter You were discharged from [facility] on 03/16/2021 00:00 Should you have any questions prior [...]
--- OUTSIDE RECORDS SUMMARY | 2021-11-13 00:13 | XMS_ITS | CCD ---
[...] Start Date Traumatic dislocation of tarsometatarsal joint [id number] 2021 Social History Smoking Status Code Start Date End Date Never smoker [id number] Patient Decision Aids Unknown or Not Available. Discharge Instructions You were admitted to [facility] on 2021 10:37 with a principal diagnosis of Dislocation of tarsometatarsal joint of right foot, subsequent encounter You were discharged from [facility] on 2021 00:00 Should you have any questions prior [...]
--- OUTSIDE RECORDS SUMMARY | 2021-11-13 00:13 | XMS_ITS | CCD ---
[...] Code Start Date Pain due to internal prosthetic device [id number] 0 07/10/2021 Social History Smoking Status Code Start Date End Date Never smoker [id number] Patient Decision Aids Unknown or Not Available. Discharge Instructions You were admitted to on 07/10/2021 09:38 with a principal diagnosis of Pain due to internal orthopedic prost hetic devices, implants and grafts, initial encounter You were discharged from on 07/10/2021 09:38 Should you have any questions prior to [...]
--- NOTE | 2021-11-13 12:07 | DI.MAMMO_ITS ---
Exam(s) MAMMO SCREENING EXAM: MAMMO SCREENING CLINICAL HISTORY: SCREENING FOR BREAST CANCER Z12.39 TECHNIQUE: Bilateral full field digital CC and MLO mammographic images were obtained with 3D tomosyn thesis and utilizing computer aided detection (CAD). COMPARISON: Available for comparison. FINDINGS: Masses/Architectural Distortion: None seen. Microcalcifications: No suspicious pleomorphic-type are seen. Skin Thickening/Nipple Retraction: None. IMPRESSION: 1. No significant interval change with no specific features of malignancy noted. 2. Unless there is more urgent need, screening mammography is recommended, as per [place] guidelines. BI-RADS Category 1 - Negative Breast Density - Category B - Scattered areas of fibroglandular density Breast density category C or D implies that the patient has dense breast tissue. Dense breast tissue is very common and is not abnormal but dense breast tissue can make it harder to find cancer on a ma mmogram. Also, dense breast tissue may increase their breast cancer risk. This information about the result of the mammogram report was provided to the patient to raise their awareness. Use this report when you speak with the patient about their risks for breast cancer, which includes their family hist ory. At that time, you may recommend for more screening tests (Ultrasound or MRI) as they might be us eful based on their risk. A negative radiographic report should not delay biopsy if a dominant or clinically suspicious mass is present. Up to ten percent of cancers are not identified on mammography. A negative report may reinforce clinical impression. Adenosis and dense breasts may obscure an underlying neoplasm. False positive reports average 6 to 10%. Patient will receive a letter notifying them of these results.
== END ==
PROVIDERS: PCP Family Medicine; Visit Provider Family Medicine
DX: Z12.31 Encounter for screening mammogram for malignant neoplasm of breast (principal); R92.8 Other abnormal and inconclusive findings on diagnostic imaging of breast; S92.811S Other fracture of right foot, sequela; X58.XXXS Exposure to other specified factors, sequela
CPT/HCPCS: 77063; 77067; 77080

== ENCOUNTER → 2022-02-19 00:50 | Outpatient (CLI) | payer BC, SELFPAY ==
--- NOTE | 2022-02-19 10:29 | DI.US_ITS ---
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 Estimated ejection fraction is 60%. Wall m otion is normal Normal right ventricular size and systolic function Both atria are normal in size There is no structural or hemodynamically significant valvular disease Estimated right ventricular systolic pressure is 27 mmHg Wall motion Left Ventricle The left ventricle is normal size. The left ventricular systolic function is normal. The left ventric ular ejection fraction is within the normal range. There is normal left ventricular wall thickness. T here is normal LV segmental wall motion. There is no ventricular septal defect visualized. LVEF is 60 %. Right Ventricle The right ventricle is normal size. The right ventricular systolic function is normal. The RVSP is 26 .9 mmHg. Atria The left atrium size is normal. The right atrium size is normal. The interatrial septum is intact wit h no evidence for an atrial septal defect. Aortic Valve The aortic valve is normal in structure. Aortic valve is trileaflet. There is no aortic valvular sten osis. No aortic regurgitation is present. Mitral Valve The mitral valve is normal in structure. No evidence of mitral valve stenosis. Trace mitral regurgita tion. Tricuspid Valve The tricuspid valve is normal in structure. There is no tricuspid valve stenosis. Trace tricuspid reg urgitation. Pulmonic Valve The pulmonary valve is normal in structure. There is no pulmonic valvular stenosis. Trace pulmonic re gurgitation. Great Vessels The aortic root is normal in size. The ascending aorta is normal in size. Aortic arch is normal in ca liber. IVC is normal in size and collapses >50% with inspiration. Pericardium There is no pericardial effusion. 2D Dimensions IVSD d PLAX 0.84 cm F: 0.6-1.0 LV Vol A2C d MOD 96.5 mL LVPW d PLAX 0.83 cm F: 0.6 - 1.0 LV Vol A4C d MOD 105.0 mL LVID d PLAX 4.63 cm F: 3.8 - 5.2 LA vol/ BSA A2C s A-L 37.1 mL/m2 LVDs 2.95 cm F: 2.2 - 3.5 LA vol/ BSA A4C s A-L 24.3 mL/m2 Ao Root d 2.81 cm F: 2.7 - 3.3 LA Vol/ BSA Biplane s A-L 30.6 mL/m2 RA Area A4C 15.96 cm2 LA Area A4C s MOD 17.92 cm2 RA Vol/ BSA A4C s A-L 22.5 mL/m2 LA Area A2C s MOD 22.63 cm2 Ao Asc Diam d 3.09 cm F: 2.3 - 3.1 LV EF A4C MOD 59.3 % LV EF Teichholz 65.3 % LV EF A2C MOD 62.8 % LVEF (Dorsey's) 58.38 % F: 54 - 74 LV EF Biplane MOD 58.4 % LV Volume 77.13 mL F: 46 - 106 SV 60.37 mL LV Volume Index 37.99 mL/m2 F: 29 - 61 SV Index 29.69 mL/m2 LV Vol Biplane MOD 103.4 mL FS 35.75 % M-Mode TAPSE 1.88 cm (M/F) >1.7 LV Diastology MV E' medial 0.088 (>0.07 m/s) E/A Ratio 1.0 LV E/e MED 7.65 (<14) MV E Vmax 0.68 (0.4-1.3 m/s) MV E' lateral 0.105 (>0.1 m/s) MV A Vmax 0.70 (0.4-1.3 m/s) LV E/e LAT 6.40 (<14) MV E/A Ratio 0.91 MV E/E' medial 7.69 MV E/E' lateral 6.43 Aortic Valve LVOT Area 3.02 cm2 AoV Area Vmax 2.73 cm2 LVOT Vmax 1.25 m/s AoV Area/ BSA (Vmax) 1.34 cm2/m2 LVOT Mean Yoav. 0.78 m/s DEONDRE Mean Yoav. 2.66 cm2 LVOT Peak Grad 6.3 mmHg DEONDRE Mean Yoav. Index 1.31 cm2/m2 LVOT Mean Grad 2.9 mmHg LVOT VTI 0.259 m LVOT Diam s 1.95 cm AoV Vmax 1.39 m/s Velocity Ratio 0.89 AoV Mean Yoav. 0.88 m/s AoV Peak Grad 7.7 mmHg LVOT SV 78.07 mL AoV Mean Grad 3.6 mmHg AoV VTI 0.261 m AoV Area VTI 2.99 cm2 AoV Area/ BSA (VTI) 1.47 cm/m2 Mitral Valve MV DT 243 (160-240 msec) MV PHT 71 msec MV Area PHT 3.12 cm2 Pulmonary Valve PV Vmax 1.08 (0.5-1.5 m/s) RVOT Peak Gr. 3.59 mmHg PV Peak Grad 4.7 mmHg RVOT Mean Gr. 1.80 mmHg PV Mean Grad 2.5 mmHg RVOT VTI 0.209 m PV VTI 0.251 m RVOT Vmax 0.95 m/s Tricuspid Valve TR Peak Grad 23.9 mmHg TR Vmax 2.44 m/s RA Pressure 3.00 mmHg RVSP (TR) 26.9 mmHg
== END ==
PROVIDERS: PCP Family Medicine; Visit Provider Family Medicine
DX: I47.29 Other ventricular tachycardia (principal); R00.2 Palpitations
CPT/HCPCS: 93306

== ENCOUNTER 2022-04-22 09:59 | Emergency (ER) | payer BC, SELFPAY ==
[2022-04-22 10:05] VITALS: BP 137/92; PULSE 96; RESP 18; TEMP 36.6; O2SAT 99
--- NOTE | 2022-04-22 11:27 | ED.GENADUL_ITS ---
Discharge Plan Disposition Patient Disposition: Home Condition: Stable Discharge Details Clinical Impression: Rash, Acute knee pain Primary Care Provider: Razia Bernard ED Provider: Elizabeth Sexton Home Meds and New Rx's Prescriptions: New doxycycline monohydrate 100 mg capsule 100 mg PO BID Qty: 20 0RF prednisone 20 mg tablet 40 mg PO ONCE Qty: 10 0RF Continued naproxen sodium [Aleve] 220 MG capsule 220 mg PO PRN cetirizine [Zyrtec] 10 mg Tablet 10 mg PO DAILY PRN Discharge Instructions Instructions: Acute Rash (ED), Knee Pain (ED) Additional Instructions: Take the antibiotic as prescribed Yogurt daily while on antibiotic Take the prednisone as prescribed Refrain from bending as much as possible Recheck in 24 to 48 hours Return earlier should you have new or worsening complaints your knee xray shows possible ligament injury with effusion wear your knee brace and follow-up with orthpedics at your scheduled appt Referrals: Razia Bernard MD [Primary Care Provider] - Discharge Data Discharge Date/Time-TO BE ENTERED AT DEPARTURE: 04/22/22 13:01 Medical Decision Making This 59-year-old female with chronic knee pain presents with rash which is now present for the past several days I did consider septic arthritis, however she has full range of motion of her knee with a rash that appears to be located dermatitis presentation, uncertain as to whether or not its atopic versus contact No indication for arthrocentesis at this time Again full flexion and extension without discomfort X-ray per radiology interpretation and my review displays No osseous findings but abnormal soft tissue findings laterally.? May indicate significant soft tissue/ligament injury.? Ortho follow-up recommended and possible MRI. X-ray does not show significant acute abnormality, very mild elevation in CRP, no leukocytosis Afebrile and nontoxic Placed in knee splints Has appointment with orthopedist in the next several days Placed on prednisone and Keflex for uncertain etiology of rash Given the threshold to return and they are worsening complaints, 48-hour recheck recommended Medical Records Medical records reviewed: Yes I reviewed the patient's medical records. Lab Data Lab results reviewed: Yes I reviewed the patient's lab results. HPI General Date/Time Provider Initiated Documentation: 04/22/22 10:45 . HPI Narrative: This 51-year-old female presents with right knee pain and swelling that started on Tuesday. Of note, she has had pain to her right knee since December but its been intermittent. She states that today that pain is very similar but she also has a more superficial discomfort. She states the rash is also quite itchy. She denies any known exposures to creams or ointments or anything topical. She denies any calf pain or swelling. She denies any tick bites. She states that for the most part she is able to fully flex and extend her knee and this does not exacerbate the pain. She attempted some [id number] hydrocortisone for several days without relief in symptoms reportedly. She denies any history of IV drug abuse. Denies fever or chills. Related Data Home Medications Medication Instructions Recorded Confirmed naproxen sodium 220 mg capsule 220 mg PO PRN 07/16/15 04/22/22 (Aleve) cetirizine 10 mg tablet (Zyrtec) 10 mg PO DAILY PRN 04/22/22 04/22/22 doxycycline monohydrate 100 mg 100 mg PO BID #20 caps 04/22/22 capsule prednisone 20 mg tablet 40 mg PO ONCE #10 tabs 04/22/22 Previous Rx's Medication Instructions Recorded doxycycline monohydrate 100 mg 100 mg PO BID #20 caps 04/22/22 capsule prednisone 20 mg tablet 40 mg PO ONCE #10 tabs 04/22/22 Allergies Allergy/AdvReac Type Severity Reaction Status Date / Time Penicillins Allergy Severe Anaphylaxsi Unverified 04/22/22 10:08 s Sulfa (Sulfonamide Allergy Intermediate Skin Rash Unverified 04/22/22 10:08 Antibiotics) General Stated Complaint: RashLesion THOMAS: 4 Review of Systems All systems reviewed & are unremarkable except as noted in HPI and below PFSH All Active Problems (Updated 04/22/22 @ 12:27 by ISAAC Nugent) Rash (Acute) Acute knee pain (Acute) Medical History (Updated 04/22/22 @ 12:27 by ISAAC Nugent) Migraines Surgical History (Updated 02/01/18 @ 14:35 by [employer] [place]) Cholecystectomy Reduction mammoplasty Family History Mother Arthritis Father Diabetes Essential hypertension Heart disease Social History Smoking/Tobacco Use Status: Former Tobacco Use Smoking risk assessment performed?: Yes Alcohol Intake: never Drug use: Never Substance use type: does not use Do you feel safe at home: Yes Do you feel safe in your relationship?: Yes Exam Const General: cooperative, comfortable and no acute distress Extrem Upper/lower leg/hip images: 1. Redness noted with papular rash which appears like dermatitis pattern with intermittent satellite lesions, mild superficial tenderness, no significant swelling, range of motion intact, no calf pain or swelling, no lymphangitis Other: Neurovascularly intact Course Vital Signs Vital signs: Vital Signs Temperature 36.6 C 04/22/22 10:05 Pulse 96 H 04/22/22 10:05 Respiratory Rate 18 04/22/22 10:05 Blood Pressure 137/92 H 04/22/22 10:05 Pulse Oximetry 99 04/22/22 10:05 Temperature 36.6 C 04/22/22 10:05 Temperature Source Oral 04/22/22 10:05 Pulse 96 H 04/22/22 10:05 Respiratory Rate 18 04/22/22 10:05 Respiratory Effort Non-Labored 04/22/22 10:10 Blood Pressure 137/92 H 04/22/22 10:05 Blood Pressure Position Sitting 04/22/22 10:05 Pulse Oximetry 99 04/22/22 10:05 Oxygen Delivery Method Room Air 04/22/22 10:05 Oxygen Flow Rate 0 04/22/22 10:05 Pain Level 5 04/22/22 10:05
[2022-04-22 11:32] LABS: Abs Immature Grans 0.03 10^3/uL (0.0-0.06); Absolute Basophil Count 0.05 10^3/uL (0.0-0.2); Absolute Eosinophil Count 0.26 10^3/uL (0.0-0.7); Absolute Lymphocyte Count 2.37 10^3/uL (1.2-3.4); Absolute Monocyte Count 0.64 10^3/uL (0.1-0.8); Absolute Neutrophil Count 5.52 10^3/uL (1.2-6.7); Basophils % 0.6; Eosinophils % 2.9; HGB 14.5 g/dL (11.2-15.7); Immature Grans % 0.3; Lymphocytes % 26.7; MCH 30.2 pg (27.0-33.0); MCV 92 fL (80-95); Monocytes % 7.2; Neutrophils % 62.3; Platelet Count 273 10^3/uL (130-400); RDW 13.2 % (11.7-14.6); RDW-SD 44.9 fL; WBC 8.87 10^3/uL (4.4-10.8)
[2022-04-22 11:34] LABS: ESR 13 mm/hr (0-30)
[2022-04-22 11:53] LABS: ALT 52 U/L (14-59); AST 27 U/L (15-37); Albumin 4.7 g/dL (3.4-5.0); Alkaline Phosphatase 152 U/L (46-116); Anion Gap 9.6 mmol/L (3-11); BUN 15 mg/dL (7-18); Bilirubin, Total 0.4 mg/dL (0.2-1.0); C-Reactive Protein 0.93 mg/dL (0.0-0.3); CO2 28.4 mmol/L (21.0-32.0); CREATININE 0.7 mg/dL (0.55-1.02); Calcium 9.6 mg/dL (8.5-10.1); Chloride 103 mmol/L (98-107); Estimated GFR 104.65 (mL/min/1.73m2); Glucose 109 mg/dL (74-106); Potassium 4.3 mmol/L (3.5-5.1); Sodium 141 mmol/L (136-145)
--- NOTE | 2022-04-22 12:02 | DI.RAD_ITS ---
Exam(s) XR KNEE RT 3V AP,LAT,KELLIE EXAM: XR KNEE RT 3V AP,LAT,KELLIE CLINICAL HISTORY: knee pain. TECHNIQUE: 2D digital imaging was performed. COMPARISON: No exams were available for comparison FINDINGS: 3 views No evidence of acute fracture. Small joint effusion. No joint space narrowing. No osteophytes. On the frontal view there is increased soft tissue density posterolaterally, medial to the biceps fem lucio tendon. IMPRESSION: No osseous findings but abnormal soft tissue findings laterally. May indicate significant soft tissu e/ligament injury. Ortho follow-up recommended and possible MRI. Called by myself to ER provider. DATA REPOSITORY: RADIATION DOSE DELIVERED:
[2022-04-23 11:09] LABS: Lyme Ab w Rflx to Lyme Confirm Negative (Negative)
[2022-04-24 17:40] LABS: Anaplasma phagocytophilum Negative (Negative); B. miyamotoi PCR Negative (Negative); Babesia divergens/MO-1 Negative (Negative); Babesia duncani Negative (Negative); Babesia microti Negative (Negative); Ehrlichia chaffeensis Negative (Negative); Ehrlichia ewingii/canis Negative (Negative); Ehrlichia muris eauclairensis Negative (Negative)
== END 2022-04-22 13:01 | disposition home or self-care (01) ==
PROVIDERS: Emergency Provider Physician Assistant; PCP Family Medicine
DX: M25.561 Pain in right knee (principal); R21 Rash and other nonspecific skin eruption
CPT/HCPCS: 36415; 73562; 80053; 85652; 87798; 99283; 85025; 86140; 86618

== ENCOUNTER 2022-09-20 14:56 | Outpatient (REF) | payer BC, SELFPAY ==
[2022-09-20 16:22] LABS: Hemoglobin A1C 6.2 % (<5.7)
[2022-09-20 16:55] LABS: Calculated LDL 182 mg/dL (<100); Cholesterol 281 mg/dL (<200); HDL Cholesterol 49 mg/dL (40-60); Triglyceride 254 mg/dL (<150)
[2022-09-22 10:32] LABS: Cyclic Citrullinated Peptide <2.5 U/mL (<5.0)
[2022-09-22 10:44] LABS: HIV-1/2 Ag & Ab Screen Negative (Negative)
[2022-09-22 11:00] LABS: Hepatitis C Ab w Rflx HCV PCR Negative (Negative)
== END 2022-09-20 14:57 | disposition home or self-care (01) ==
LOC: NCHCN 14:56
PROVIDERS: PCP Family Medicine; Visit Provider Family Medicine
DX: R73.03 Prediabetes (principal); E78.5 Hyperlipidemia, unspecified; M25.561 Pain in right knee; Z11.4 Encounter for screening for human immunodeficiency virus [HIV]; Z11.51 Encounter for screening for human papillomavirus (HPV); Z00.00 Encounter for general adult medical examination without abnormal findings
CPT/HCPCS: 80061; 86200; 86803; 87389; 83036

== ENCOUNTER → 2022-12-27 00:48 | Outpatient (CLI) | payer BC, SELFPAY ==
--- NOTE | 2022-12-27 | DI.MAMMO_ITS ---
Exam(s) MAMMO SCREENING EXAM: MAMMO SCREENING CLINICAL HISTORY: SCREENING, Z12.39. TECHNIQUE: Bilateral full field digital CC and MLO mammographic images were obtained with 3D tomosyn thesis and utilizing computer aided detection (CAD). COMPARISON: Prior mammograms were reviewed. FINDINGS: There has been no significant change in the appearance and distribution of the fibroglandular tissue. Small benign-appearing nodule in the left breast is unchanged from prior mammograms and has appearanc e of a probable benign intramammary lymph. There are no new spiculated masses nor malignant appearing microcalcification groups. There is no significant architectural distortion nor skin thickening-retraction. IMPRESSION: No radiographic evidence of malignancy. Stable benign findings. BI-RADS Category 2 - Benign Findings Breast Density - Category B - Scattered areas of fibroglandular density Breast density Category C or D implies that the patient has dense breast tissue. Dense breast tissue can make it harder to find cancer on a mammogram. Dense breast tissue is also associated with an incr eased risk of breast cancer. This information about the result of the mammogram report was provided to the patient to raise their awareness. Use this report when you speak with the patient about their risks for breast cancer, which includes their family history. At that time, you may recommend additional screening tests (Ultrasoun d or MRI) as these tests may add significant information. A negative radiographic report should not delay biopsy if a dominant or clinically suspicious mass is present. Up to ten percent of cancers are not identified on mammography. A negative report may reinforce clinical impression. Adenosis and dense breasts may obscure an underlying neoplasm. False positive reports average 6 to 10%. Patient will receive a letter notifying them of these results.
== END ==
PROVIDERS: PCP Family Medicine; Visit Provider Family Medicine
DX: Z12.31 Encounter for screening mammogram for malignant neoplasm of breast (principal)
CPT/HCPCS: 77063; 77067

== ENCOUNTER 2023-11-09 10:40 | Outpatient (REF) | payer BC, SELFPAY ==
[2023-11-09 16:42] LABS: TSH (W/Ref FT4) 2.22 uIU/mL (0.36-3.74)
[2023-11-09 17:23] LABS: Hemoglobin A1C 6.1 % (<5.7)
== END 2023-11-09 10:41 | disposition home or self-care (01) ==
LOC: NCHCN 10:40
PROVIDERS: PCP Family Medicine; Visit Provider Family Medicine
DX: F41.1 Generalized anxiety disorder (principal); Z13.1 Encounter for screening for diabetes mellitus; R73.09 Other abnormal glucose
CPT/HCPCS: 83036; 84443

== ENCOUNTER 2024-01-06 00:07 | Outpatient (CLI) | payer BC, SELFPAY ==
--- NOTE | 2024-01-06 13:00 | DI.MAMMO_ITS ---
Exam(s) MAMMO SCREENING EXAM: MAMMO SCREENING CLINICAL HISTORY: Screening, Z12.31 TECHNIQUE: Mammograms were interpreted according to the usual protocol including computer analysis w [employer] CAD system, tomosynthesis and C-view imaging. COMPARISON: 2015 through 2022 FINDINGS: The breasts are composed of scattered fibroglandular densities, Breast Density category B. No suspicious masses or suspicious microcalcifications are seen. No skin thickening or abnormal axillary lymph nodes are seen. There has been no significant change from prior exams. IMPRESSION: BI-RADS Category 1, Negative mammogram Yearly screening mammography is recommended. Breast Density - Category B, scattered fibroglandular densities. A negative radiographic report should not delay biopsy if a dominant or clinically suspicious mass is present. Up to ten percent of cancers are not identified on mammography. A negative report may reinforce clinical impression. Adenosis and dense breasts may obscure an underlying neoplasm. False positive reports average 6 to 10%. Patient will receive a letter notifying them of these results.
== END 2024-01-06 00:27 ==
LOC: DI 00:07
PROVIDERS: PCP Family Medicine; Visit Provider Family Medicine
DX: Z12.31 Encounter for screening mammogram for malignant neoplasm of breast (principal)
CPT/HCPCS: 77063; 77067

== ENCOUNTER 2024-03-06 16:19 | Emergency (ER) | payer BC, SELFPAY ==
[2024-03-06 16:26] VITALS: BP 138/91; PULSE 105; RESP 22; TEMP 37; O2SAT 97
--- NOTE | 2024-03-06 17:15 | DI.RAD_ITS ---
Exam(s) XR CHEST 2V PA LATERAL EXAM: XR CHEST 2V PA LATERAL CLINICAL HISTORY: cough. TECHNIQUE: 2D digital imaging was performed. COMPARISON: No exams were available for comparison FINDINGS: 2 views: Heart size is normal. The mediastinum is not widened. Lung is clear. However, there is significant infiltrate in the lower half the right lung field which appears to be in the right middle lobe as seen on the lateral view. Pleural effusions. IMPRESSION: Significant right lung infiltrate as described above. No pleural effusions. Appropriate follow-up r ecommended. DATA REPOSITORY: RADIATION DOSE DELIVERED:
[2024-03-06 17:18] LABS: COVID-19 PCR Negative (Negative); Influenza A PCR Negative (Negative); Influenza B PCR Negative (Negative); RSV PCR Negative (Negative)
[2024-03-06 17:21] LABS: Source NASOPHARYNX
--- NOTE | 2024-03-06 17:29 | ED.GENADUL_ITS ---
Discharge Plan Disposition Patient Disposition: Home Condition: Stable Discharge Details Clinical Impression: Pneumonia Primary Care Provider: Razia Bernard ED Provider: Tone Lanier Home Meds and New Rx's Prescriptions: New cefuroxime axetil 500 mg tablet 500 mg PO BID 5 Days Qty: 10 0RF doxycycline hyclate 100 mg capsule 100 mg PO BID 5 Days Qty: 10 0RF Continued naproxen sodium [Aleve] 220 MG capsule 220 mg PO PRN acyclovir 400 mg tablet 400 mg PO TID PRN Rx Instructions: for 5 days for breakout cetirizine [Zyrtec] 10 mg Tablet 10 mg PO DAILY PRN Discharge Instructions Instructions: Albuterol, Cefuroxime, Doxycycline, Pneumonia, Adult ED Additional Instructions: You were seen in the emergency department for your productive cough for about a week. You have a right sided pneumonia and I have prescribed 2 different antibiotics called cefuroxime and doxycycline, you do have an allergy to penicillins and there is very tiny chance that you could have a cross reaction that is not as severe to cefuroxime, please monitor closely. Please use therapeutic dosing of Tylenol (acetamenophen) & Advil (ibuprofen) in an alternating fashion as follows: Take 1000mg of Tylenol every 6 hours without missing doses- that is 4 times per day. [employer] in between the Tylenol dosings, take 400-600mg of Advil also on a 6 hour schedule, that is also 4 times per day. The daily maximum dosing of Tylenol is 4000mg, and the daily maximum dosing of Advil is 2400mg. This is safe to do for weeks. Please note that some common cold medications & prescription pain medications may contain acetamenophen and you need to read OTC drug labels and factor that in to maximum daily dosings. Please use the provided albuterol inhaler for shortness of breath as needed. Please return to the emergency department for worsening respiratory distress despite treatment, any other emergent concerns Referrals: Razia Bernard MD [Primary Care Provider] - Discharge Data Discharge Date/Time-TO BE ENTERED AT DEPARTURE: 03/06/24 18:19 HPI General Date/Time Provider Initiated Documentation: 03/06/24 16:29 . HPI Narrative: 53 year-old female presents to ED today by POV/ambulating with a chief complaint of chest cold with onset for about a week. Quality described as mild shortness of breath, coughing up yelling phlegm, no radiation to chest pain, profound SOB, nausea/vomiting, weakness, high fever, body aches, severe headaceh. Severity is described as moderate. Palliating factors include nothing specific attempted. Provoking factors include nothing specific. Events leading up to the incident/Associated Symptoms: Patient states she has had no workup done prior to this visit for this cough. Patient not anticoagulated. Related Data Home Medications ?Medication ?Instructions ?Recorded ?Confirmed naproxen sodium 220 mg capsule 220 mg PO PRN 07/16/15 03/06/24 (Aleve) cetirizine 10 mg tablet (Zyrtec) 10 mg PO DAILY PRN 04/22/22 03/06/24 acyclovir 400 mg tablet 400 mg PO TID PRN 10/24/23 03/06/24 cefuroxime axetil 500 mg tablet 500 mg PO BID pneumonia 5 days #10 03/06/24 tabs doxycycline hyclate 100 mg capsule 100 mg PO BID pneumonia 5 days #10 03/06/24 caps Previous Rx's ?Medication ?Instructions ?Recorded cefuroxime axetil 500 mg tablet 500 mg PO BID pneumonia 5 days #10 03/06/24 tabs doxycycline hyclate 100 mg capsule 100 mg PO BID pneumonia 5 days #10 03/06/24 caps Allergies Allergy/AdvReac Type Severity Reaction Status Date / Time Penicillins Allergy Severe Anaphylaxsi Unverified 10/24/23 15:43 s erythromycin base Allergy Intermediate nausea Unverified 10/24/23 15:43 Sulfa (Sulfonamide Allergy Intermediate Skin Rash, Unverified 10/24/23 15:43 Antibiotics) facial swelling adhesive tape Allergy Mild unknown Unverified 10/24/23 15:43 sertraline (From Zoloft) Allergy Mild unknown Unverified 10/24/23 15:43 doxycycline AdvReac Mild Nausea Unverified 10/24/23 15:43 Tetanus Vaccines and Toxoid AdvReac Mild persistent Unverified 10/24/23 15:43 locallized pain General Stated Complaint: RespSymp THOMAS: 3 Review of Systems All systems reviewed & are unremarkable except as noted in HPI and below Exam Narrative Exam Narrative: GENERAL APPEARANCE: Well-nourished, non-toxic, awake and alert, atraumatic, no acute distress. SKIN: Warm, pink, dry, intact, without rashes/lesions/ulcerations. HEAD: Normocephalic, atraumatic, normal hair distribution for gender/age. EYES: Normal conjunctiva, no exudates on lids/lashes. ENT: Nares patent, no circumoral cyanosis, no facial swelling NECK: Supple, trachea midline, painless cervical ROM. LUNGS/CHEST: Lung -rhonchi mid right lung, non-labored respirations, normal A/P diameter, symmetrical expansion, no chest wall deformity HEART (CV/PV): Regular rate and rhythm without murmur, no peripheral edema, no JVD. ABDOMEN: Soft, non-distended, no guarding. MSK: Normal ROM, no swelling/deformity to bilateral UEs or LEs, moving all extremities without weakness, no cyanosis, spine midline without tenderness, normal curvature. NEURO: Mental Status AAOx4 - alert to person, place, time, events No facial droop, no forehead involvement. Motor: No focal weakness - strength 5/5 in bilateral UEs and LEs, proximal and distal, symmetric. Sensory: sensation intact to light touch globally. Gait normal: patient ambulated without ataxia into ED room. PSYCH: euthymic, cooperative, pleasant, appropriate speech Course Vital Signs Vital signs: Vital Signs Temperature 37.0 C 03/06/24 16:26 Pulse 105 H 03/06/24 16:26 Respiratory Rate 22 03/06/24 16:26 Blood Pressure 138/91 H 03/06/24 16:26 Pulse Oximetry 97 03/06/24 16:26 Temperature 37.0 C 03/06/24 16:26 Temperature Source Temporal Artery Scan 03/06/24 16:26 Pulse 105 H 03/06/24 16:26 Respiratory Rate 22 03/06/24 16:26 Blood Pressure 138/91 H 03/06/24 16:26 Blood Pressure Position Sitting 03/06/24 16:26 Pulse Oximetry 97 03/06/24 16:26 Oxygen Delivery Method Room Air 03/06/24 16:26 Oxygen Flow Rate 0 03/06/24 16:26 Lab/Test Results Lab/Test Results: Laboratory Tests Range/Units 03/06/24 16:39 COVID-19 Source NASOPHARYNX SARS-CoV-2 (PCR) (Negative) Negative Influenza Type A (PCR) (Negative) Negative Influenza Type B (PCR) (Negative) Negative RSV (PCR) (Negative) Negative Medical Decision Making This dictation utilizes [id number] dictation software and may contain unedited grammatical errors. 53 year-old female presents to ED today by POV/ambulating with a chief complaint of chest cold with onset for about a week. Quality described as mild shortness of breath, coughing up yelling phlegm, no radiation to chest pain, profound SOB, nausea/vomiting, weakness, high fever, body aches, severe headaceh. Severity is described as moderate. Palliating factors include nothing specific attempted. Provoking factors include nothing specific. Events leading up to the incident/Associated Symptoms: Patient states she has had no workup done prior to this visit for this cough. Patients' medical history: Obesity, prediabetes, migraines. Family and social history: Noncontributory. Pertinent exam findings / vital signs include rhonchi anterior mid right lung, otherwise clear, nontoxic, no respiratory distress. Differential / pathologies of concern include pneumonia, URI, viral syndrome. Diagnostic studies of: -Respiratory PCR swab, chest [id number] swab negative, chest x-ray shows a right lung infiltrate. Interventions of: -Cefuroxime and doxycycline for total treatment of pneumonia, provided albuterol inhaler for mild symptomatic shortness of breath. ED Course/Assessment/Plan: 53-year-old female presents with a weeks cough, chest x-ray shows a right-sided infiltrate and has rhonchi in the right midlung, treating for pneumonia, provided albuterol inhaler for symptomatic shortness of breath, recommend therapeutic dosing of Tylenol and ibuprofen and strict return criteria for any worsening respiratory distress. Findings not consistent with hypoxic respiratory failure, septic illness. Disposition of pneumonia. Patient verbalized understanding of the plan and return to ED criteria and engaged in shared decision making. Medical Records Medical records reviewed: Yes I reviewed the patient's medical records. Imaging Data Radiologic Study: Attestation: I personally reviewed and interpreted this imaging study as follows: Imaging: X-Ray Radiologist's impression: EXAM: XR CHEST 2V PA LATERAL CLINICAL HISTORY: cough. TECHNIQUE: 2D digital imaging was performed. COMPARISON: No exams were available for comparison FINDINGS: 2 views: Heart size is normal. The mediastinum is not widened. Lung is clear. However, there is significant infiltrate in the lower half the right lung field which appears to be in the right middle lobe as seen on the lateral view. Pleural effusions. IMPRESSION: Significant right lung infiltrate as described above. No pleural effusions. Appropriate follow-up recommended. Lab Data Lab results reviewed: Yes I reviewed the patient's lab results. Labs: Laboratory Tests Range/Units 03/06/24 16:39 COVID-19 Source NASOPHARYNX SARS-CoV-2 (PCR) (Negative) Negative Influenza Type A (PCR) (Negative) Negative Influenza Type B (PCR) (Negative) Negative RSV (PCR) (Negative) Negative Quality:SDOH Health Related Social Needs: No Data to Display PFSH All Active Problems (Updated 03/06/24 @ 17:51 by ISAAC Butler) Pneumonia (Acute) Impacted cerumen, left ear (Acute) Medical History (Updated 03/06/24 @ 17:51 by ISAAC Butler) Varicose veins of lower extremity Prediabetes Allergic rhinitis HLD (hyperlipidemia) Eczema Obesity Recurrent oral herpes simplex infection Knee joint effusion Urticaria Nonsustained paroxysmal ventricular tachycardia History of herpes zoster Migraines Surgical History (Updated 08/16/23 @ 12:31 by Charlee Collado RN) History of endometrial ablation History of open reduction and internal fixation (ORIF) procedure right foot S/P hardware removal Right foot 06/2021 Cholecystectomy Reduction mammoplasty Family History (Updated 08/16/23 @ 12:32 by Charlee Collado RN) Mother Arthritis Adopted Alcohol use disorder Father Diabetes Essential hypertension Heart disease Hypercholesterolemia Social History Smoking/Tobacco Use Status: Former Tobacco Use Smoking risk assessment performed?: Yes Alcohol Intake: never Drug use: Never Substance use type: does not use Housing: house Do you feel safe at home: Yes Do you feel safe in your relationship?: Yes
[2024-03-06 18:01] VITALS: BP 141/79; PULSE 107; RESP 18; TEMP 36.8; O2SAT 96
[2024-03-06] MEDS: Inhaler, Assist Device 1 EACH MC (18:05)
[2024-03-06] MEDS: Albuterol HFA 8 GM 60 PUFF INH IH (18:05)
[2024-03-06 18:18] VITALS: BP 132/78; PULSE 82; RESP 22; TEMP 36.8; O2SAT 95
== END 2024-03-06 18:19 | disposition home or self-care (01) ==
PROVIDERS: Emergency Medicine; Emergency Provider Physician Assistant; PCP Family Medicine
DX: J18.9 Pneumonia, unspecified organism (principal); Z87.891 Personal history of nicotine dependence
CPT/HCPCS: 87637; 99284; 71046; 99283

== ENCOUNTER 2024-11-21 17:02 | Outpatient (REF) | payer BC, SELFPAY ==
[2024-11-21 18:26] LABS: ALT 35 U/L (14-59); AST 19 U/L (15-37); Albumin 4.1 g/dL (3.4-5.0); Alkaline Phosphatase 127 U/L (46-116); Anion Gap 8.7 mmol/L (3-11); BUN 15 mg/dL (7-18); Bilirubin, Total 0.3 mg/dL (0.2-1.0); CO2 28.3 mmol/L (21.0-32.0); Calcium 9.2 mg/dL (8.5-10.1); Chloride 102 mmol/L (98-107); Cholesterol 295 mg/dL (<200); Estimated GFR 102.71 (mL/min/1.73m2); Glucose 107 mg/dL (74-106); HDL Cholesterol 36 mg/dL (>or=50); Potassium 4.1 mmol/L (3.5-5.1); Sodium 139 mmol/L (136-145); Total Protein 7.2 g/dL (6.4-8.2); Triglyceride 533 mg/dL (<150)
[2024-11-21 18:33] LABS: Hemoglobin A1C 6.2 % (<5.7)
[2024-11-21 18:36] LABS: LDL CHOLESTEROL 168 mg/dL (<100)
== END 2024-11-21 17:03 | disposition home or self-care (01) ==
LOC: NCHCN 17:02
PROVIDERS: PCP Family Medicine; Visit Provider Family Medicine
DX: Z13.1 Encounter for screening for diabetes mellitus (principal); Z13.220 Encounter for screening for lipoid disorders; I10 Essential (primary) hypertension
CPT/HCPCS: 80053; 80061; 83721; 83036